=== PATIENT | female | born 1965 | race Caucasian/White ===

== ENCOUNTER 2022-09-24 14:40 | Inpatient (IN) | payer BC, SELFPAY ==
[2022-09-24] VITALS (21 sets, daily range): BP systolic 91–151; BP diastolic 65–97; PULSE 98–125; RESP 15–20; TEMP 36.2–36.3; O2SAT 96–100; BMI 33.8; BMI 34.2
--- NOTE | ~2022-09-24 | XR_ITS ---
EXAMINATION: XR chest PICC line INDICATION: PICC insertion TECHNIQUE: Portable AP chest at 1305 hours COMPARISON: 09/29/2022 FINDINGS: A right upper extremity PICC ends with its tip in the midsuperior vena cava. The lungs are free of acute opacities. No pleural effusion or pneumothorax. The cardiomediastinal silhouette is nor mal. Changes of fusion procedure are noted in the lower cervical spine. IMPRESSION: 1. Right upper extremity PICC ending with its tip in the midsuperior vena cava. Reviewed, dictated and finalized at location B.
--- NOTE | ~2022-09-24 | CT_ITS ---
EXAMINATION: CT abdomen pelvis w con DATE: 09/24/2022 17:01 INDICATION: jaundice, vomiting TECHNIQUE: Computed tomography (CT) of the abdomen and pelvis was performed with 100 mL Omnipaque-350 intravenous contrast. Automated exposure control and iterative reconstruction technique were employe d. The dose-length product was 1445.81 mGy-cm. COMPARISON: None. FINDINGS: Lower thorax: Minimal dependent atelectasis. Liver: Enlarged. Geographic fatty infiltration. Left lobe cyst/hemangioma at the free edge of the lef t lobe near the gallbladder. Biliary/Gallbladder: Dilated gallbladder. No gallstones detected. Trace pericholecystic fluid No bile duct dilation. Pancreas: No mass or duct dilation. Spleen: Normal. Adrenals:No mass. Kidneys: No mass, stone, or hydronephrosis. GI tract: Small hiatal hernia. Gastric bypass surgery. No small or large bowel dilation. Appendix not visualized. Mesentery/Peritoneum: Small volume ascites. No mass or free air. Retroperitoneum: No mass. Mild atherosclerotic abdominal aortic and/or arterial calcifications. Pelvis: Urinary bladder decompressed. Uterus surgically absent. Small volume free pelvic fluid. Soft Tissues: Soft tissues and body wall unremarkable. Bones: No acute osseous finding. IMPRESSION: Hepatomegaly with geographic steatosis. Gallbladder hydrops. Small volume ascites. Reviewed, dictated and finalized at location K. IMPRESSION: Hepatomegaly with geographic steatosis. Gallbladder hydrops. Small volume ascit es.
--- NOTE | ~2022-09-24 | CT_ITS ---
EXAMINATION: CT brain wo con DATE: 09/24/2022 17:01 INDICATION: ams . TECHNIQUE: Computed tomography (CT) of the head was performed without intravenous contrast. The mA wa s adjusted according to patient size. Iterative reconstruction technique was employed. The dose-lengt h product was 605.33 mGy-cm. COMPARISON: None. FINDINGS: No acute intracranial hemorrhage or extra-axial fluid collection. No hydrocephalus, mass, or herniation. No acute ischemic infarct. Unremarkable dural venous sinus attenuation. No acute osseous abnormality. The aerated spaces are clear. IMPRESSION: No acute intracranial process. Reviewed, dictated and finalized at location K.
--- NOTE | ~2022-09-24 | XR_ITS ---
EXAMINATION: XR chest 1V portable INDICATION: Hyponatremia TECHNIQUE: Portable AP chest at 1333 hours COMPARISON: None available FINDINGS: The lungs are free of acute opacities. No pleural effusion or pneumothorax. The cardiomedia stinal silhouette is normal. There are partially imaged changes of fusion procedure in the lower cerv ical spine. IMPRESSION: 1. No acute cardiopulmonary abnormality. Reviewed, dictated and finalized at location L.
--- NOTE | 2022-09-24 15:20 | ECG_ITS ---
Measurements Intervals [place] Rate: 95 P: 26 [place]: 140 QRS: 20 QRSD: 98 T: 10 QT: 342 QTc: 431 Interpretive Statements SINUS RHYTHM MINIMAL Q WAVES- INFERIOR LEADS CONSIDER ANTERIOR INFARCT, AGE INDETERMINATE BORDERLINE T WAVE ABNORMALITY- ANTEROLAT/INF LEADS BASELINE ARTIFACT- I, III, AVL ABNORMAL ECG NO PREVIOUS ECG AVAILABLE FOR COMPARISON Electronically Signed On 09-24-2022 21:36:27 CDT by Cristopher Salcido D.O.
--- NOTE | 2022-09-24 15:21 | ED.AMS ---
HPI - Altered Mental Status General Chief Complaint: Altered Mental Status Stated Complaint: jaundice, AMS Time Seen by Provider: 09/24/22 15:01 History of Present Illness HPI narrative: Patient is a 57-year-old female presenting with altered mental status. Son is at bedside and is assisting with history. States that the patient had a URI several weeks ago and at that time decided to stop drinking. States that she was drinking 2-4 bottles of wine per day before this time. States that she has not been drinking since then but unfortunately her skin has become progressively yellow her. She spoke with her PCP about a week ago who discussed dietary changes to help. She continues to have worsening jaundice and has now been confused since last night around 9 PM. Patient's son states that she has been having difficulty finding words and was having problems using the remote last night. No focal weakness or numbness. No facial droop. She denies fevers or chills, headache, chest pain, shortness of breath, abdominal pain, diarrhea, dysuria, leg swelling. She does report an episode of melena today. Related Data Home Medications Medication Instructions Recorded Confirmed calcium carbonate 600 mg calcium 1,200 mg PO DAILY 09/26/22 09/26/22 (1,500 mg) tablet vits no.126-ferrous fum 2 tablet PO DAILY 09/26/22 09/26/22 28 mg iron-folic acid 800 mcg tablet (Classic ) Allergies Allergy/AdvReac Type Severity Reaction Status Date / Time No Known Allergies Allergy Verified 09/24/22 15:10 Review of Systems Review of Systems: All systems reviewed & are unremarkable except as noted in HPI and below PMFSH Past Medical History Medical History (Updated 09/29/22 @ 14:26 by Yumiko Cortés MD) Alcoholic hepatitis Alcoholism Dark stools Essential hypertension No longer medications since bypass procedure Hepatic steatosis Hyperlipidemia No longer medications since bypass procedure Hypothyroidism No longer on medication since bypass procedure Kidney stones Migraine Obesity With weight as high as 360 lb prior to bypass procedure Obstructive sleep apnea Reportedly resolved after bypass procedure Slow transit constipation Surgical History Surgical History (Updated 09/25/22 @ 00:06 by Radha Michelle DO) History of appendectomy History of breast biopsy Multiple with benign pathology History of gastric bypass (~2007) History of tonsillectomy and adenoidectomy History of total hysterectomy with bilateral salpingo-oophorectomy (BSO) Initial hysterectomy due to uterine fibroids with patient later having bilateral oophorectomy but had to have a 3rd surgery due to ?part of an ovary being left over? 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 She has moved to the area in February of 2022 following a divorce and lives with her son and his family. She has 3 sons. She is a lifelong nonsmoker. She denies illicit substance use. She drinks between 3-4 bottles of wine a day but quit drinking September 07 2022. Code status: Full code Surrogate decision maker: Rui Michelle (youngest son) Smoking status: Never smoker Second hand tobacco smoke exposure: Yes (Mother smoked) Alcohol intake: former Substance use: never Last use: Quit drinking 3 weeks ago, drank 2 bottles of wine a day Lack of Transportation: No Lack of Food: Never True Current Housing: I Have Housing Concerned About Future Housing: No Difficulty Paying Gas/Electric Bills: No Difficulty Paying for Meds: No Currently Unemployed: No Education: Associate Degree Difficulty w/ Childcare or Family Care: No Spirit
[2022-09-24] MEDS: LACTATED RINGERS 1,000 ML 999 ML IV CONT ×2 (15:46→19:40)
[2022-09-24 15:48] LABS: Hematocrit 33.7 % (37.0-47.0); Hemoglobin 11.8 g/dL (12.0-15.0); Mean Corpuscular Hemoglobin 36.8 pg (26-34); Mean Platelet Volume 10.5 fl (7.4-10.4); Platelet Count Result 212 k/mm3 (150-375); Red Blood Count 3.21 M/mm3 (4.2-5.4); Red Cell Distribution Width 15.3 % (11.5-14.5); White Blood Count 12.7 K/mm3 (4.5-10.0)
[2022-09-24 15:59] LABS: INR 2.4; Prothrombin Time 25.4 Seconds (11.1-14.7)
[2022-09-24 16:07] LABS: Ethanol < 10 mg/dL (<10)
[2022-09-24 16:08] LABS: Alanine Aminotransferase 151 U/L (6-35); Albumin Level 3.4 g/dL (3.5-5.1); Alkaline Phosphatase 199 U/L (38-126); Anion Gap 8 mmol/L (8-16); Aspartate Amino Transferase 340 U/L (14-36); Bilirubin,Total 25.4 mg/dL (0.2-1.3); Blood Urea Nitrogen 33 mg/dL (7-17); Calcium 8.3 mg/dL (8.4-10.2); Carbon Dioxide 28 mmol/L (22-30); Chloride 89 mmol/L (98-107); Estimated CRCL calculation 49 ml/min; Estimated Glomerular Filt Rate > 60; Glucose 144 mg/dL (65-110); Lipase 130 U/L (23-300); Magnesium 2.8 mg/dL (1.6-2.3); Potassium 3.6 mmol/L (3.4-5.0); Sodium 125 mmol/L (137-145)
[2022-09-24 16:15] LABS: Lactic Acid Reflex 2.3 mmol/L (0.7-2.0)
[2022-09-24 16:18] LABS: Ammonia 47 umol/L (9-30)
[2022-09-24 16:18] LABS: Troponin I < 0.012 ng/mL (0.000-0.034)
[2022-09-24 16:19] LABS: Band Neutrophils Percent 4 % (0-6); Eosinophils Absolute Manual 0.12 K/mm3 (0.02-0.5); Eosinophils Percent Manual 1 % (0-4); Lymphocytes Absolute Manual 0.38 K/mm3 (1.1-4.5); Monocytes Absolute Manual 0.38 K/mm3 (0.1-0.90); Monocytes Percent Manual 3 % (3-9); Neutrophils Absolute Manual 11.81 K/mm3 (1.7-7.2); Neutrophils Percent Manual 89 % (46-73); Total Cells Counted 100
[2022-09-24 16:20] LABS: Platelet Estimate Adequate (Adequate); Schistocytes None Seen (NORMAL)
[2022-09-24 16:21] LABS: Anisocytosis 2+ (NORMAL)
[2022-09-24 16:38] LABS: Influenza A QL RT-PCR Negative (Negative); Influenza B QL RT-PCR Negative (Negative); SARS-CoV-2 RNA PCR Negative
[2022-09-24 16:44] LABS: Appearance Urine Clear (Clear); Bilirubin Urine 3+ (Negative); Blood Urine Trace-lysed (Negative); Color Urine Orange (Yellow); Glucose Urine UA Trace mg/dL (Negative); Ketones Urine Trace mg/dL (Negative); Leukocyte Esterase Ur Negative LEU/UL (Negative); Nitrate Urine Negative (Negative); Protein Urine 1+ mg/dL (Negative)
[2022-09-24 16:56] LABS: Add Urine Microscopic? YES; RBC Urine 0-2 /hpf (0-2)
[2022-09-24 16:57] LABS: Bacteria Urine None seen /hpf; Squamous Epithelial Cell Urine Rare /hpf (Few); WBC Urine None seen /hpf (0-3)
[2022-09-24 19:00] LABS: Reflex Lactic Acid Yes or No Add Lactic
--- NOTE | 2022-09-24 19:21 | PC.NURSE ---
Report received from RICARDO Ortega. Assumed care of patient at this time.
[2022-09-24 19:52] LABS: Troponin I < 0.012 ng/mL (0.000-0.034)
[2022-09-24 19:54] LABS: Lactic Acid 2.4 mmol/L (0.7-2.0)
--- NOTE | 2022-09-24 20:13 | PM.IMHP ---
H&P: HPI History of Present Illness Date/Time: 09/24/22 20:13 Chief Complaint: Yellow skin, confused Narrative: 57-year-old female with a past medical history of hepatic steatosis, morbid obesity status post gastric bypass procedure 2007, pre diabetes, essential hypertension, hypothyroidism, alcoholism and chronic constipation with hemorrhoids who presented to the ER from home via private vehicle due to jaundice and confusion. Source of information comes from the patient and her son who was at bedside. The patient's case was discussed with patient's son with her permission. The patient evidently recently moved here in February after she got a divorce. She has still working intact support. She was in her usual state health until approximately 3 weeks ago when her and several other members of her household became ill with nausea vomiting and diarrhea. After she recovered from those symptoms she accidentally drink some orange juice which thing gave her an episode of dumping a. When she became so ill with the dumping episode she decided that she would had been sick long enough and did not need to drink her usual 3-4 bottles of wine a day anymore. She she thinks that part of her ill symptoms during that time was likely due to alcohol withdrawal as she has not drink since that time. After her initial symptoms resolved her son noted that the patient's skin started to turn faintly yellow. Her skin has been mildly yellow for a couple of weeks but has gotten markedly more so in the last 5 days. Her son brought her in today when she became acutely confused. He reports that his mother's responses are slower than usual and she is having difficulty with thought process. The patient herself is frustrated because she is having difficulty expressing answers to questions. She is only oriented to who the president is in the fact that she is at [facility]. She thought the month was October and that the year was 2021. Despite her difficulties with orientation questions she was relatively good historian regarding her past medical history. She reported that she usually tends to be constipated and LEs she is having an amp episode of dumping syndrome when she accidentally ingests sugar. She had not had a bowel movement in about a week and then today had a hard bowel movement. After she had a hard bowel movement she did pass some dark blood with her stool. Her son felt that the amount of blood in the stool was moderate. The patient states that this is not unusual for her when she has been constipated and she does have a history of hemorrhoids. She denies any abdominal pain. She has not had any recurrent nausea vomiting after her initial symptoms a few weeks ago. She denies any heartburn. She has not had any chest pain. She has been coughing for about 3 days and reports that it is been a nonproductive cough. She has been mildly short of breath for 1 day. She has not noticed her abdomen being more distended. She denies any chest pain. She has not had any difficulty with urination. She reports that her stools were brown. He was afebrile on presentation to the ER. She denies any headache or vision changes. Her son is also noticed that the patient has been having difficulty ambulating for the last day or 2. Her gait is slow. On evaluation the patient had a slightly broad-based gait. When she closes her eyes the patient loses her balance and falls backwards. She did have a fall last week while she was in the laundry room but denies hitting her head. It sounds as if she was having trouble getting up off the floor due to limited space and generalized weakness. Her son was able to help her up off the floor. She denies any difficulty with urination. She denies a known history of cirrhosis. She reports that she has been drinking heavily for 6 years. She does not have a primary care physician in the area and has been receiving her medical care via tele medicine. She plans
[2022-09-24] MEDS: LACTULOSE 20 GM/30 ML UDC PO (20:14)
[2022-09-24] MEDS: predniSONE 20 MG TABLET 40 MG PO (20:14)
[2022-09-24] MEDS: BENZONATATE 100 MG CAPSULE PO (20:25)
[2022-09-24 20:49] LABS: Sodium Urine Random < 5 meq/L
[2022-09-24 22:24] LABS: Sodium 128 mmol/L (137-145)
--- NOTE | 2022-09-24 22:34 | PC.NURSE ---
This patient, Chel Gil, was admitted to IMU Room 231-01 on 09/24/22 at 2115. Patient/family oriented to hospital policies and general routines including ID bracelet, bed and alarms, visiting hours, pain management, procedures, bathroom and other care routines, personal items, smoking policy, room service/diet, and visiting hours. Information on how to activate the Rapid Response Team has been discussed. Patient/Family are encouraged to report perceived risks to care and to ask questions if they do not understand what they are told or what they should do.
[2022-09-24 22:38] LABS: Troponin I < 0.012 ng/mL (0.000-0.034)
[2022-09-24] MEDS: THIAMINE 500 MG/NS 100 ML 500 MG/100 ML BAG 200 MG IVPB (23:00)
[2022-09-25] VITALS (13 sets, daily range): BP systolic 91–131; BP diastolic 60–77; PULSE 97–118; RESP 16–20; TEMP 36.3–36.7; O2SAT 97–100
--- NOTE | 2022-09-25 04:46 | PC.NURSE ---
Spoke with the transfer center. Still no beds available at [facility].
[2022-09-25 05:01] LABS: Basophils Percent Auto 0.3 % (0.2-1.2); Hematocrit 30.5 % (37.0-47.0); Hemoglobin 10.5 g/dL (12.0-15.0); Immature Granulocyte Absolute 0.08 K/mm3 (0.00-0.031); Immature Granulocyte Percent A 0.7 % (0-0.5); Lymphocytes Absolute Auto 0.55 K/mm3 (0.9-3.2); Lymphocytes Percent Auto 4.6 % (18.3-44.2); Mean Corpuscular HGB Conc 34.4 g/dl (32-36); Mean Corpuscular Volume 107.4 fl (80-100); Mean Platelet Volume 10.3 fl (7.4-10.4); Monocytes Absolute Auto 0.4 K/mm3 (0.1-0.6); Monocytes Percent Auto 3.7 % (2.6-8.5); Neutrophils Absolute Auto 10.8 K/mm3 (1.3-6.7); Neutrophils Percent Auto 90.7 % (45.5-73.1); Platelet Count Result 203 k/mm3 (150-375); Red Blood Count 2.84 M/mm3 (4.2-5.4); Red Cell Distribution Width 15.5 % (11.5-14.5); White Blood Count 11.9 K/mm3 (4.5-10.0)
[2022-09-25 05:12] LABS: INR 2.7; Prothrombin Time 27.7 Seconds (11.1-14.7)
[2022-09-25 05:13] LABS: Lactic Acid Reflex 1.2 mmol/L (0.7-2.0)
[2022-09-25 05:14] LABS: Partial Thromboplastin Time 45.9 SECONDS (22.3-36.8)
[2022-09-25 05:18] LABS: Alanine Aminotransferase 146 U/L (6-35); Albumin Level 2.8 g/dL (3.5-5.1); Alkaline Phosphatase 175 U/L (38-126); Amylase 114 U/L (30-110); Anion Gap 7 mmol/L (8-16); Aspartate Amino Transferase 296 U/L (14-36); Blood Urea Nitrogen 31 mg/dL (7-17); Calcium 7.8 mg/dL (8.4-10.2); Carbon Dioxide 26 mmol/L (22-30); Chloride 94 mmol/L (98-107); Estimated CRCL calculation 70 ml/min; Estimated Glomerular Filt Rate > 60; Glucose 133 mg/dL (65-110); Lactate Dehydrogenase 253 U/L (120-246); Potassium 3.1 mmol/L (3.4-5.0); Sodium 127 mmol/L (137-145)
[2022-09-25 06:15] LABS: Folic Acid 12.7 ng/mL (2.76->20); Vitamin B12 > 1000.0 pg/mL (239-931)
[2022-09-25] MEDS: THIAMINE 500 MG/NS 100 ML 500 MG/100 ML BAG 200 MG IVPB ×3 (06:22→22:43)
[2022-09-25 07:32] LABS: Thyroid Stimulating Hormone 0.773 uIU/mL (0.465-4.680)
[2022-09-25 08:14] LABS: Magnesium 2.9 mg/dL (1.6-2.3)
[2022-09-25] MEDS: LACTULOSE 20 GM/30 ML UDC PO ×3 (09:37→17:12)
[2022-09-25] MEDS: predniSONE 20 MG TABLET 40 MG PO (09:37)
[2022-09-25] MEDS: POTASSIUM CHLORIDE INJ 40 MEQ in SODIUM CHLORIDE 0.9% IV 500 ML 130 MEQ IVPB (09:42)
--- NOTE | 2022-09-25 14:29 | PM.IMPN ---
Progress Note: A&P Assessment and Plan (1) Alcoholic cirrhosis of liver with ascites: Code(s): K70.31 - Alcoholic cirrhosis of liver with ascites Status: Acute (2) Acute liver failure: Qualifiers: Hepatic coma status: without hepatic coma Qualified Code(s): K72.00 - Acute and subacute hepatic failure without coma Code(s): K72.00 - Acute and subacute hepatic failure without coma Status: Acute (3) Coagulopathy: Code(s): D68.9 - Coagulation defect, unspecified Status: Acute (4) Lactic acidosis: Code(s): E87.20 - Acidosis, unspecified Status: Acute (5) Hyponatremia: Code(s): E87.1 - Hypo-osmolality and hyponatremia Status: Acute (6) Hepatic encephalopathy: Code(s): K76.82 - Hepatic encephalopathy Status: Acute (7) Megaloblastic anemia: Code(s): D53.1 - Other megaloblastic anemias, not elsewhere classified Status: Acute Plan The patient in a presents with acute liver failure likely due to her chronic alcoholism. Her acute liver failure is resulted in hepatic encephalopathy and auto anticoagulation resulting and coagulopathy with INR of 2. She also has associated lactic acidosis likely due to her hepatic dysfunction. Patient received 2 L of IV fluids in the ER with her lactic acid level increasing instead of decreasing. The patient's discriminant function is elevated at 91.2 indicating poor prognosis and the patient's meld score was 33 with a predicted 52% mortality. The patient's discriminant function indicates she would benefit from steroid therapy. I ordered prednisone 40 mg p.o. daily to start tonight. The entertainment agent at [facility] was contacted by the ER provider. The patient is on a waiting list for bed. Lactulose has been initiated given the patient's hepatic encephalopathy and elevated ammonia for goal of 2-3 soft stools a day. T.i.d. lactulose has been ordered initially. Hepatology route recommends diagnostic paracentesis patient did have a small amount of ascites on CT scan. Order has been placed for IR consult and for diagnostic studies. Will also check acute hepatitis panel to rule out viral pathology but most likely cause for patient's symptoms as her alcoholism. Patient does have some hyponatremia which is likely chronic in nature. Urine random sodium and urine osmolalities as well as serum osmolality have been ordered. Will trend sodiums. Given the patient's coagulopathy will need to repeat INR in a.m.. The patient may need FFP prior to paracentesis. The patient will be made NPO at midnight for possible procedure. Patient does have megaloblastic anemia. Will check B12 and folate levels. Patient had reported some blood in her stools. GI has been consulted. The patient does have chronic alcoholism but has not reportedly drank in 3 weeks. Given her altered mental status will give patient some high-dose thiamin. Her altered mental status is likely due to hepatic encephalopathy but morning case is still a risk. Will continue thiamin supplementation and will add folic acid supplementation. If the patient truly quit drinking 3 weeks ago we should not have to worry about alcohol withdrawal. However, will monitor for symptoms regardless. The patient does have an ataxic gait and the patient was subsequently received high-dose thiamin as there is some concern for morning q.6 specially in the setting with patient who is had prior gastric bypass procedure with likely some mild chronic malnutrition with the complication of additional alcohol use. Patient has been placed on fall precautions. 100 minutes spent in patient care activities. Greater than 50% time was spent with the patient and family members at bedside explaining clinical course and prognosis. All questions were answered 09/25/2022 interval history: 57-year-old female with history of alcohol abuse now presents with liver cirrhosis and hyperlipidemia with jaundice as we
[2022-09-25] MEDS: FUROSEMIDE INJ 40 MG/4 ML VIAL IV PUSH (15:43)
[2022-09-25 16:19] LABS: Hepatitis B Surface Antigen Negative (Negative)
[2022-09-25 16:25] LABS: HAV RESULT Negative (Negative); Hepatitis B Core IgM Result Negative (Negative)
[2022-09-25 16:36] LABS: Hepatitis C Virus Antibody Negative (Negative)
--- NOTE | 2022-09-25 17:12 | WPDGICN ---
Assessment and Plan Assessment and plan (1) Alcoholic hepatitis: Code(s): K70.10 - Alcoholic hepatitis without ascites Status: Acute Assessment and Plan: severe alcoholic hepatitis medical support, nutrition and banana bag ERP attempted transfer to [facility] but no beds given high discrimant function she was started on steroids prognosis is guarded specially if continues to drink (2) Alcoholic cirrhosis of liver with ascites: Code(s): K70.31 - Alcoholic cirrhosis of liver with ascites Status: Acute Assessment and Plan: monitor ultrasound tomorrow to assess if enough fluid for analysis (3) Acute liver failure: Qualifiers: Hepatic coma status: without hepatic coma Qualified Code(s): K72.00 - Acute and subacute hepatic failure without coma Code(s): K72.00 - Acute and subacute hepatic failure without coma Status: Acute Assessment and Plan: medical treatment (4) Coagulopathy: Code(s): D68.9 - Coagulation defect, unspecified Status: Acute Assessment and Plan: from liver disease, will give vit K (5) Hepatic encephalopathy: Code(s): K76.82 - Hepatic encephalopathy Status: Acute Assessment and Plan: on treatment mental status improved (6) Megaloblastic anemia: Code(s): D53.1 - Other megaloblastic anemias, not elsewhere classified Status: Acute (7) Dark stools: Code(s): R19.5 - Other fecal abnormalities Status: Acute Assessment and Plan: monitor for signs of bleeding check h/h protonix consider egd based on clinical course GI Consult Note Consult date/time: 09/25/22 17:12 Reason for consult: severe alcoholic hepatitis HPI: Chel Gil is a 57 year old female with past medical history morbid obesity status post gastric bypass procedure 2007, pre diabetes, essential hypertension, alcoholism (for 6 years 2-3 bottles wine daily- stopped 3 weeks ago after having flu like symptoms. She was brought to ER because became jaundice, dark urine and confusion with generalized weakness. Also has been having nausea for almost 3 weeks and never got better. Her son brought her when she became acutely confused, she was slow to move around and was not even able to walk. Also noted dark stool. Blood work with severe alcoholic hepatitis, bili 23, creat 0.8, hb 10.5 with macrocytosis, inr 2.7, lactulose 47. CT scan reviewed, Hepatomegaly with geographic steatosis. Gallbladder hydrops. Small volume ascites. She was given medical treatment, banana bag, etc and today she says that feeling much better. Review of Systems Constitutional: Constitutional: Reports fatigue and Reports lethargy Eyes: Eyes: Denies blurry vision ENT: Reports Normal hearing present Cardiovascular: Cardiovascular: Denies chest pain Gastrointestinal: Gastrointestinal: Reports nausea and Reports vomiting Genitourinary: Genitourinary: Denies urinary urgency Musculoskeletal: Musculoskeletal: Denies back pain Integumentary/Breasts: Comments: jaundice Neurologic: Reports confusion Psychiatric: Psychiatric: Reports confusion [facility] Past Medical History Medical History (Updated 09/25/22 @ 17:19 by Volodymyr Ye MD) Alcoholic hepatitis Alcoholism Dark stools Essential hypertension No longer medications since bypass procedure Hepatic steatosis Hyperlipidemia No longer medications since bypass procedure Hypothyroidism No longer on medication since bypass procedure Kidney stones Migraine Obesity With weight as high as 360 lb prior to bypass procedure Obstructive sleep apnea Reportedly resolved after bypass procedure Slow transit constipation Surgical History Surgical History (Updated 09/25/22 @ 00:06 by Radha Michelle DO) History of appendectomy History of breast biopsy Multiple with benign pathology History of gastric bypass (~2007) History of tonsillectomy and adenoidectomy History of to
[2022-09-25] MEDS: SPIRONOLACTONE 12.5 MG TABLET PO (17:13)
[2022-09-26] VITALS (13 sets, daily range): BP systolic 108–127; BP diastolic 67–74; PULSE 92–114; RESP 16–20; TEMP 36.1–36.3; O2SAT 98–100
[2022-09-26 05:17] LABS: Hematocrit 29.5 % (37.0-47.0); Hemoglobin 10.3 g/dL (12.0-15.0); Mean Corpuscular HGB Conc 34.9 g/dl (32-36); Mean Corpuscular Hemoglobin 37.3 pg (26-34); Mean Corpuscular Volume 106.9 fl (80-100); Mean Platelet Volume 10.2 fl (7.4-10.4); Platelet Count Result 205 k/mm3 (150-375); Red Blood Count 2.76 M/mm3 (4.2-5.4); Red Cell Distribution Width 15.9 % (11.5-14.5); White Blood Count 13.7 K/mm3 (4.5-10.0)
[2022-09-26] MEDS: THIAMINE 500 MG/NS 100 ML 500 MG/100 ML BAG 200 MG IVPB ×3 (05:19→23:36)
[2022-09-26 05:28] LABS: INR 2.8; Prothrombin Time 28.7 Seconds (11.1-14.7)
[2022-09-26 05:40] LABS: Ammonia 22 umol/L (9-30)
[2022-09-26 05:41] LABS: Alanine Aminotransferase 163 U/L (6-35); Albumin Level 2.7 g/dL (3.5-5.1); Alkaline Phosphatase 173 U/L (38-126); Anion Gap 4 mmol/L (8-16); Aspartate Amino Transferase 338 U/L (14-36); Bilirubin,Total 22.6 mg/dL (0.2-1.3); Blood Urea Nitrogen 42 mg/dL (7-17); Calcium 7.7 mg/dL (8.4-10.2); Carbon Dioxide 27 mmol/L (22-30); Chloride 94 mmol/L (98-107); Estimated CRCL calculation 48 ml/min; Estimated Glomerular Filt Rate 47; Glucose 134 mg/dL (65-110); Magnesium 2.9 mg/dL (1.6-2.3); Potassium 3.6 mmol/L (3.4-5.0); Sodium 125 mmol/L (137-145)
[2022-09-26] MEDS: SPIRONOLACTONE 12.5 MG TABLET PO ×2 (09:15→16:26)
[2022-09-26] MEDS: predniSONE 20 MG TABLET 40 MG PO (09:15)
[2022-09-26] MEDS: FUROSEMIDE INJ 40 MG/4 ML VIAL IV PUSH (09:15)
[2022-09-26] MEDS: LACTULOSE 20 GM/30 ML UDC PO (09:15)
[2022-09-26] MEDS: PHYTONADIONE 5 MG TABLET 10 MG PO (09:16)
[2022-09-26] MEDS: PANTOPRAZOLE 40 MG TABLET PO (09:16)
--- NOTE | 2022-09-26 16:33 | WPDGIPROGNO ---
Progress Note: A&P Assessment and Plan (1) Alcoholic hepatitis: Code(s): K70.10 - Alcoholic hepatitis without ascites Status: Acute Assessment and Plan: severe etoh hepatitis with elevated discriminant function on steroids she is eating, continue nutritional support, mvi, thiamine will need referral to hepatology at tertiary center (2) Hepatic encephalopathy: Code(s): K76.82 - Hepatic encephalopathy Status: Acute Assessment and Plan: better, on lactulose (3) Coagulopathy: Code(s): D68.9 - Coagulation defect, unspecified Status: Acute Assessment and Plan: vit K (4) Megaloblastic anemia: Code(s): D53.1 - Other megaloblastic anemias, not elsewhere classified Status: Acute Assessment and Plan: hb has been stable at 10's, no signs of bleeding probably will need egd later on to assess if phg, varices, etc Subjective Date/time seen: 09/26/22 16:33 Interval history: good appetite, pleasant and feeling better, still with short term memory problem Review of Systems Review of Systems: All systems reviewed & are unremarkable except as noted in HPI and below Exam Const: Other: acutely ill, jaundice HENMT: Face/Nose/Sinus: Normal nares present Eyes: Other: icteric sclerae Neck: Neck: supple Resp: Effort & Inspection: normal respiratory effort Cardio: Rate: regular rate GI: GI Palp: Yes Soft to palpation, No Tenderness to palpation present (GI) and No Guarding due to palpation present (GI) Auscultation: normal bowel sounds Skin: Other: jaundice Neuro: Speech: normal speech Motor exam (neuro): 5/5 motor strength present throughout Extrem: General: normal to inspection Psych: Affect: Anxious affect present Objective Data Vital Signs Vital Signs: Vital Signs - 24 hr 09/25/22 18:00 09/25/22 20:00 09/25/22 20:00 Temperature 97.7 F Pulse Rate 102 H 111 H 116 H Respiratory Rate 18 Blood Pressure 124/76 Pulse Oximetry 100 Oxygen Delivery 09/25/22 20:00 09/25/22 21:43 09/25/22 23:16 Temperature 97.3 F L Pulse Rate 116 H 100 108 H Respiratory Rate 18 16 Blood Pressure 111/62 Pulse Oximetry 100 98 Oxygen Delivery Room Air 09/26/22 00:00 09/26/22 00:00 09/26/22 02:00 Temperature Pulse Rate 100 100 96 Respiratory Rate 16 Blood Pressure Pulse Oximetry 98 Oxygen Delivery Room Air 09/26/22 04:00 09/26/22 04:00 09/26/22 04:00 Temperature 97.0 F L Pulse Rate 93 93 92 Respiratory Rate 16 16 Blood Pressure 120/74 Pulse Oximetry 98 98 Oxygen Delivery Room Air 09/26/22 05:49 09/26/22 07:34 09/26/22 08:00 Temperature 97.2 F L Pulse Rate 100 101 H Respiratory Rate 18 Blood Pressure 127/74 Pulse Oximetry 100 Oxygen Delivery Room Air 09/26/22 08:00 09/26/22 10:00 09/26/22 12:00 Temperature Pulse Rate 103 H 114 H 109 H Respiratory Rate Blood Pressure Pulse Oximetry Oxygen Delivery 09/26/22 12:00 09/26/22 12:00 09/26/22 14:00 Temperature 97.3 F L Pulse Rate 110 H 108 H Respiratory Rate 18 Blood Pressure 115/72 Pulse Oximetry 100 Oxygen Delivery Room Air 09/26/22 15:42 09/26/22 16:00 Temperature 97.1 F L Pulse Rate 109 H Respiratory Rate 20 Blood Pressure 112/67 Pulse Oximetry 99 Oxygen Delivery Room Air Intake/Output Intake/Output: Intake & Output 09/23/22 09/24/22 09/25/22 09/26/22 23:59 23:59 23:59 23:59 Intake Total 2100 1280 1030 Output Total 500 700 300 Balance 1600 580 730 Meds/Results Medications: Active Medications Generic Name Dose Route Start Last Admin Trade Name Tenzinq PRN Reason Stop Dose Admin Calcium Carbonate 1,000 mg 09/27/22 09:00 Calcium Carbonate (Oscal) 500 Mg Tablet PO DAILY DANYEL Furosemide 40 mg 09/25/22 14:45 09/26/22 09:15 Furosemide Inj 40 Mg/4 Ml Vial IV PUSH 40 mg DAILY DANYEL Administration Hydroxyzine HCl 25 mg 09/26/22 0
[2022-09-26] MEDS: hydrOXYzine HCL 25 MG TABLET PO (16:36)
--- NOTE | 2022-09-26 16:58 | PM.IMPN ---
Progress Note: A&P Assessment and Plan (1) Alcoholic cirrhosis of liver with ascites: Code(s): K70.31 - Alcoholic cirrhosis of liver with ascites Status: Acute (2) Acute liver failure: Qualifiers: Hepatic coma status: without hepatic coma Qualified Code(s): K72.00 - Acute and subacute hepatic failure without coma Code(s): K72.00 - Acute and subacute hepatic failure without coma Status: Acute (3) Coagulopathy: Code(s): D68.9 - Coagulation defect, unspecified Status: Acute (4) Lactic acidosis: Code(s): E87.20 - Acidosis, unspecified Status: Acute (5) Hyponatremia: Code(s): E87.1 - Hypo-osmolality and hyponatremia Status: Acute (6) Hepatic encephalopathy: Code(s): K76.82 - Hepatic encephalopathy Status: Acute (7) Megaloblastic anemia: Code(s): D53.1 - Other megaloblastic anemias, not elsewhere classified Status: Acute Plan The patient in a presents with acute liver failure likely due to her chronic alcoholism. Her acute liver failure is resulted in hepatic encephalopathy and auto anticoagulation resulting and coagulopathy with INR of 2. She also has associated lactic acidosis likely due to her hepatic dysfunction. Patient received 2 L of IV fluids in the ER with her lactic acid level increasing instead of decreasing. The patient's discriminant function is elevated at 91.2 indicating poor prognosis and the patient's meld score was 33 with a predicted 52% mortality. The patient's discriminant function indicates she would benefit from steroid therapy. I ordered prednisone 40 mg p.o. daily to start tonight. The retirement plan specialist at [facility] was contacted by the ER provider. The patient is on a waiting list for bed. Lactulose has been initiated given the patient's hepatic encephalopathy and elevated ammonia for goal of 2-3 soft stools a day. T.i.d. lactulose has been ordered initially. Hepatology route recommends diagnostic paracentesis patient did have a small amount of ascites on CT scan. Order has been placed for IR consult and for diagnostic studies. Will also check acute hepatitis panel to rule out viral pathology but most likely cause for patient's symptoms as her alcoholism. Patient does have some hyponatremia which is likely chronic in nature. Urine random sodium and urine osmolalities as well as serum osmolality have been ordered. Will trend sodiums. Given the patient's coagulopathy will need to repeat INR in a.m.. The patient may need FFP prior to paracentesis. The patient will be made NPO at midnight for possible procedure. Patient does have megaloblastic anemia. Will check B12 and folate levels. Patient had reported some blood in her stools. GI has been consulted. The patient does have chronic alcoholism but has not reportedly drank in 3 weeks. Given her altered mental status will give patient some high-dose thiamin. Her altered mental status is likely due to hepatic encephalopathy but morning case is still a risk. Will continue thiamin supplementation and will add folic acid supplementation. If the patient truly quit drinking 3 weeks ago we should not have to worry about alcohol withdrawal. However, will monitor for symptoms regardless. The patient does have an ataxic gait and the patient was subsequently received high-dose thiamin as there is some concern for morning q.6 specially in the setting with patient who is had prior gastric bypass procedure with likely some mild chronic malnutrition with the complication of additional alcohol use. Patient has been placed on fall precautions. 09/26/2022 interval history: 57-year-old female with history of alcohol abuse now presents with liver cirrhosis and hyperlipidemia with jaundice as well as ascites, patient remains clinically stable does complain of abdominal pain but does not appear to be any short of breath, will gently diurese the patient with Lasix and spironolactone, patient
--- NOTE | 2022-09-26 20:43 | PC.NURSE ---
Patient transferred from IMU room 231; report received from RICARDO Brock.
--- NOTE | 2022-09-26 21:20 | PC.NURSE ---
Report given to Aby SILVA. Patient to room 301
[2022-09-27] MEDS: BENZONATATE 100 MG CAPSULE PO ×2 (00:11→18:35)
[2022-09-27 05:33] VITALS: BP 102/67; PULSE 91; RESP 16; TEMP 36.2; O2SAT 99
[2022-09-27 06:01] LABS: Hematocrit 33.3 % (37.0-47.0); Hemoglobin 11.5 g/dL (12.0-15.0); Mean Corpuscular HGB Conc 34.5 g/dl (32-36); Mean Corpuscular Hemoglobin 36.5 pg (26-34); Mean Corpuscular Volume 105.7 fl (80-100); Mean Platelet Volume 10.3 fl (7.4-10.4); Platelet Count Result 197 k/mm3 (150-375); Red Blood Count 3.15 M/mm3 (4.2-5.4); Red Cell Distribution Width 15.6 % (11.5-14.5); White Blood Count 12.5 K/mm3 (4.5-10.0)
[2022-09-27] MEDS: THIAMINE 500 MG/NS 100 ML 500 MG/100 ML BAG 200 MG IVPB ×3 (06:06→21:13)
[2022-09-27 06:12] LABS: INR 2.8; Prothrombin Time 28.6 Seconds (11.1-14.7)
[2022-09-27] MEDS: hydrOXYzine HCL 25 MG TABLET PO ×3 (06:12→21:13)
[2022-09-27 06:14] LABS: Ammonia 64 umol/L (9-30)
[2022-09-27 06:16] LABS: Alanine Aminotransferase 204 U/L (6-35); Albumin Level 2.9 g/dL (3.5-5.1); Alkaline Phosphatase 214 U/L (38-126); Anion Gap 4 mmol/L (8-16); Aspartate Amino Transferase 432 U/L (14-36); Bilirubin,Total 23.3 mg/dL (0.2-1.3); Blood Urea Nitrogen 41 mg/dL (7-17); Calcium 7.6 mg/dL (8.4-10.2); Carbon Dioxide 26 mmol/L (22-30); Chloride 93 mmol/L (98-107); Estimated CRCL calculation 52 ml/min; Estimated Glomerular Filt Rate 52; Glucose 130 mg/dL (65-110); Potassium 3.2 mmol/L (3.4-5.0); Sodium 123 mmol/L (137-145)
[2022-09-27] MEDS: LACTULOSE 20 GM/30 ML UDC PO (08:25)
[2022-09-27] MEDS: MULTIVIT/MIN/PREN/FOL AC/IRON TABLET 2 TAB PO (08:25)
[2022-09-27] MEDS: FUROSEMIDE INJ 40 MG/4 ML VIAL IV PUSH (08:26)
[2022-09-27] MEDS: PHYTONADIONE 5 MG TABLET 10 MG PO (08:26)
[2022-09-27] MEDS: PANTOPRAZOLE 40 MG TABLET PO (08:26)
[2022-09-27] MEDS: SPIRONOLACTONE 12.5 MG TABLET PO ×2 (08:26→18:00)
[2022-09-27] MEDS: POTASSIUM CHLORIDE 20 MEQ TABLET 40 MEQ PO (08:26)
[2022-09-27] MEDS: predniSONE 20 MG TABLET 40 MG PO (08:26)
[2022-09-27] MEDS: CALCIUM CARBONATE (OSCAL) 500 MG TABLET 1000 MG PO (08:26)
--- NOTE | 2022-09-27 10:52 | PCOTNOTE ---
Attempted to see pt. for occupational therapy evaluation. Pt. is independent in room and states that she does not require OT services at this time. Hospitalist, Dr. Brothers called, voicemail full. Nursing updated. Plans to cancel order when approved.
--- NOTE | 2022-09-27 13:20 | PM.IMPN ---
Progress Note: A&P Assessment and Plan (1) Alcoholic cirrhosis of liver with ascites: Code(s): K70.31 - Alcoholic cirrhosis of liver with ascites Status: Acute (2) Acute liver failure: Qualifiers: Hepatic coma status: without hepatic coma Qualified Code(s): K72.00 - Acute and subacute hepatic failure without coma Code(s): K72.00 - Acute and subacute hepatic failure without coma Status: Acute (3) Coagulopathy: Code(s): D68.9 - Coagulation defect, unspecified Status: Acute (4) Lactic acidosis: Code(s): E87.20 - Acidosis, unspecified Status: Acute (5) Hyponatremia: Code(s): E87.1 - Hypo-osmolality and hyponatremia Status: Acute (6) Hepatic encephalopathy: Code(s): K76.82 - Hepatic encephalopathy Status: Acute (7) Megaloblastic anemia: Code(s): D53.1 - Other megaloblastic anemias, not elsewhere classified Status: Acute Plan The patient in a presents with acute liver failure likely due to her chronic alcoholism. Her acute liver failure is resulted in hepatic encephalopathy and auto anticoagulation resulting and coagulopathy with INR of 2. She also has associated lactic acidosis likely due to her hepatic dysfunction. Patient received 2 L of IV fluids in the ER with her lactic acid level increasing instead of decreasing. The patient's discriminant function is elevated at 91.2 indicating poor prognosis and the patient's meld score was 33 with a predicted 52% mortality. The patient's discriminant function indicates she would benefit from steroid therapy. I ordered prednisone 40 mg p.o. daily to start tonight. The commercial development manager at [facility] was contacted by the ER provider. The patient is on a waiting list for bed. Lactulose has been initiated given the patient's hepatic encephalopathy and elevated ammonia for goal of 2-3 soft stools a day. T.i.d. lactulose has been ordered initially. Hepatology route recommends diagnostic paracentesis patient did have a small amount of ascites on CT scan. Order has been placed for IR consult and for diagnostic studies. Will also check acute hepatitis panel to rule out viral pathology but most likely cause for patient's symptoms as her alcoholism. Patient does have some hyponatremia which is likely chronic in nature. Urine random sodium and urine osmolalities as well as serum osmolality have been ordered. Will trend sodiums. Given the patient's coagulopathy will need to repeat INR in a.m.. The patient may need FFP prior to paracentesis. The patient will be made NPO at midnight for possible procedure. Patient does have megaloblastic anemia. Will check B12 and folate levels. Patient had reported some blood in her stools. GI has been consulted. The patient does have chronic alcoholism but has not reportedly drank in 3 weeks. Given her altered mental status will give patient some high-dose thiamin. Her altered mental status is likely due to hepatic encephalopathy but morning case is still a risk. Will continue thiamin supplementation and will add folic acid supplementation. If the patient truly quit drinking 3 weeks ago we should not have to worry about alcohol withdrawal. However, will monitor for symptoms regardless. The patient does have an ataxic gait and the patient was subsequently received high-dose thiamin as there is some concern for morning q.6 specially in the setting with patient who is had prior gastric bypass procedure with likely some mild chronic malnutrition with the complication of additional alcohol use. Patient has been placed on fall precautions. 09/27/2022 interval history: 57-year-old female with history of alcohol abuse now presents with liver cirrhosis and hyperbilirubinemia,with jaundice as well as ascites, patient remains clinically stable does complain of abdominal pain but does not appear to be any short of breath, will gently diurese the patient with Lasix and spironolactone, christiano
[2022-09-27 14:00] VITALS: BP 100/65; PULSE 114; RESP 16; TEMP 36.8; O2SAT 99
--- NOTE | 2022-09-27 14:42 | WPDGIPROGNO ---
Progress Note: A&P Assessment and Plan (1) Alcoholic hepatitis: Code(s): K70.10 - Alcoholic hepatitis without ascites Status: Acute Assessment and Plan: severe etoh hepatitis with elevated discriminant function, she has been started on steroids she is eating, continue nutritional support, mvi, thiamine will need referral to hepatology at tertiary center (2) Hepatic encephalopathy: Code(s): K76.82 - Hepatic encephalopathy Status: Acute Assessment and Plan: better, on lactulose (3) Coagulopathy: Code(s): D68.9 - Coagulation defect, unspecified Status: Acute Assessment and Plan: vit Km inr still high (4) Megaloblastic anemia: Code(s): D53.1 - Other megaloblastic anemias, not elsewhere classified Status: Acute Assessment and Plan: hb has been stable at 10's, no signs of bleeding probably will need egd later on to assess if phg, varices, etc Subjective Date/time seen: 09/27/22 14:42 Interval history: no changes, walking more today, good spirits Review of Systems Review of Systems: All systems reviewed & are unremarkable except as noted in HPI and below Exam Const: General: comfortable and no acute distress Other: jaundice HENMT: Face/Nose/Sinus: Normal nares present Eyes: Other: icteric sclerae Neck: Neck: supple Resp: Effort & Inspection: normal respiratory effort Cardio: Rate: regular rate GI: GI Palp: Yes Soft to palpation, No Tenderness to palpation present (GI) and No Guarding due to palpation present (GI) Auscultation: normal bowel sounds Skin: Other: jaundice Neuro: Speech: normal speech Motor exam (neuro): 5/5 motor strength present throughout Extrem: General: normal to inspection Psych: Affect: Anxious affect present Objective Data Vital Signs Vital Signs: Vital Signs - 24 hr 09/26/22 15:42 09/26/22 16:00 09/26/22 16:00 Temperature 97.1 F L Pulse Rate 109 H 109 H Respiratory Rate 20 Blood Pressure 112/67 Pulse Oximetry 99 Oxygen Delivery Room Air 09/26/22 18:00 09/26/22 20:00 09/26/22 21:33 Temperature 97.0 F L Pulse Rate 105 H 110 H Respiratory Rate 16 Blood Pressure 108/71 Pulse Oximetry 100 Oxygen Delivery Room Air 09/27/22 05:33 09/27/22 08:38 Temperature 97.2 F L Pulse Rate 91 Respiratory Rate 16 Blood Pressure 102/67 Pulse Oximetry 99 Oxygen Delivery Room Air Intake/Output Intake/Output: Intake & Output 09/24/22 09/25/22 09/26/22 09/27/22 23:59 23:59 23:59 23:59 Intake Total 2100 1280 2570 870 Output Total 500 700 900 Balance 6650 935 4332 870 Meds/Results Medications: Active Medications Generic Name Dose Route Start Last Admin Trade Name Freq PRN Reason Stop Dose Admin Benzonatate 100 mg 09/26/22 23:44 09/27/22 00:11 Benzonatate 100 Mg Capsule PO 100 mg TID PRN Administration Cough Calcium Carbonate 1,000 mg 09/27/22 09:00 09/27/22 08:26 Calcium Carbonate (Oscal) 500 Mg Tablet PO 1,000 mg DAILY DANYEL Administration Furosemide 40 mg 09/25/22 14:45 09/27/22 08:26 Furosemide Inj 40 Mg/4 Ml Vial IV PUSH 40 mg DAILY DANYEL Administration Hydroxyzine HCl 25 mg 09/26/22 09:39 09/27/22 12:11 Hydroxyzine Hcl 25 Mg Tablet PO 25 mg Q6H PRN Administration Itching Thiamine HCl 500 mg in 100 mls @ 200 mls/hr 09/25/22 06:15 09/27/22 14:09 IVPB 200 mls/hr Q8HR DANYEL Administration Lactulose 20 gm 09/26/22 09:00 09/27/22 08:25 Lactulose 20 Gm/30 Ml Udc PO 20 gm QAM DANYEL Administration Pantoprazole Sodium 40 mg 09/26/22 09:00 09/27/22 08:26 Pantoprazole 40 Mg Tablet PO 40 mg QAM DANYEL Administration Phytonadione 10 mg 09/26/22 09:00 09/27/22 08:26 Phytonadione 5 Mg Tablet PO 09/29/22 08:59 10 mg DAILY DANYEL Administration Prednisone 40 mg 09/25/22 08:00 09/27/22 08:26 Prednisone 20 Mg Tablet PO 40 mg DAILY@0800 DANYEL Administration
[2022-09-27 20:18] LABS: Osmolality, Urine 381 mOsm/kg (50-1200)
[2022-09-27 20:58] VITALS: BP 94/49; PULSE 88; RESP 16; TEMP 36.3; O2SAT 99
[2022-09-28 05:42] VITALS: BP 104/59; PULSE 90; RESP 16; TEMP 36.6; O2SAT 100
[2022-09-28 06:13] LABS: Hematocrit 31.2 % (37.0-47.0); Mean Corpuscular HGB Conc 35.3 g/dl (32-36); Mean Corpuscular Hemoglobin 35.9 pg (26-34); Mean Platelet Volume 10.3 fl (7.4-10.4); Platelet Count Result 175 k/mm3 (150-375); Red Blood Count 3.06 M/mm3 (4.2-5.4); Red Cell Distribution Width 15.5 % (11.5-14.5); White Blood Count 11.1 K/mm3 (4.5-10.0)
[2022-09-28 06:21] LABS: Ammonia 58 umol/L (9-30)
[2022-09-28] MEDS: THIAMINE 500 MG/NS 100 ML 500 MG/100 ML BAG 200 MG IVPB ×3 (06:26→21:30)
[2022-09-28 07:24] LABS: Alanine Aminotransferase 219 U/L (6-35); Albumin Level 2.7 g/dL (3.5-5.1); Alkaline Phosphatase 209 U/L (38-126); Anion Gap 8 mmol/L (8-16); Aspartate Amino Transferase 382 U/L (14-36); Bilirubin,Total 22.5 mg/dL (0.2-1.3); Blood Urea Nitrogen 44 mg/dL (7-17); Calcium 7.3 mg/dL (8.4-10.2); Carbon Dioxide 22 mmol/L (22-30); Chloride 93 mmol/L (98-107); Estimated CRCL calculation 57 ml/min; Estimated Glomerular Filt Rate 58; Glucose 134 mg/dL (65-110); Magnesium 3.3 mg/dL (1.6-2.3); Potassium 3.7 mmol/L (3.4-5.0); Sodium 123 mmol/L (137-145)
[2022-09-28] MEDS: LACTULOSE 20 GM/30 ML UDC PO (08:17)
[2022-09-28] MEDS: CALCIUM CARBONATE (OSCAL) 500 MG TABLET 1000 MG PO (08:18)
[2022-09-28] MEDS: MULTIVIT/MIN/PREN/FOL AC/IRON TABLET 2 TAB PO (08:19)
[2022-09-28] MEDS: predniSONE 20 MG TABLET 40 MG PO (08:19)
[2022-09-28] MEDS: PHYTONADIONE 5 MG TABLET 10 MG PO (08:19)
[2022-09-28] MEDS: SPIRONOLACTONE 12.5 MG TABLET PO ×2 (08:20→16:52)
[2022-09-28] MEDS: PANTOPRAZOLE 40 MG TABLET PO (08:20)
[2022-09-28] MEDS: FUROSEMIDE INJ 40 MG/4 ML VIAL IV PUSH (08:20)
[2022-09-28 09:15] VITALS: O2SAT 96
--- NOTE | 2022-09-28 12:12 | PM.IMPN ---
Progress Note: A&P Assessment and Plan (1) Alcoholic cirrhosis of liver with ascites: Code(s): K70.31 - Alcoholic cirrhosis of liver with ascites Status: Acute Assessment and Plan: Continue prednisone. Appreciate GI input (2) Acute liver failure: Qualifiers: Hepatic coma status: without hepatic coma Qualified Code(s): K72.00 - Acute and subacute hepatic failure without coma Code(s): K72.00 - Acute and subacute hepatic failure without coma Status: Acute (3) Coagulopathy: Code(s): D68.9 - Coagulation defect, unspecified Status: Acute (4) Lactic acidosis: Code(s): E87.20 - Acidosis, unspecified Status: Acute Assessment and Plan: Monitor (5) Hyponatremia: Code(s): E87.1 - Hypo-osmolality and hyponatremia Status: Acute Assessment and Plan: Monitor electrolytes (6) Hepatic encephalopathy: Code(s): K76.82 - Hepatic encephalopathy Status: Acute Assessment and Plan: Improved (7) Megaloblastic anemia: Code(s): D53.1 - Other megaloblastic anemias, not elsewhere classified Status: Acute Subjective Date/time seen: 09/28/22 12:12 No complaints Exam Narrative: Patient is comfortable, NAD HEENT: eyes are clear and icteric LUNGS: Normal respiratory effort ABD: Distended Lower extremities: no edema SKIN:jaundiced Neuro: grossly intact. Objective Data Vital Signs Vital Signs: Vital Signs - 24 hr 09/27/22 14:00 09/27/22 20:58 09/28/22 05:42 Temperature 98.3 F 97.4 F L 97.9 F Pulse Rate 114 H 88 90 Respiratory Rate 16 16 16 Blood Pressure 100/65 94/49 L 104/59 L Pulse Oximetry 99 99 100 Oxygen Delivery 09/28/22 09:15 Temperature Pulse Rate Respiratory Rate Blood Pressure Pulse Oximetry 96 Oxygen Delivery Room Air Intake/Output Intake/Output: Intake & Output 09/25/22 09/26/22 09/27/22 09/28/22 23:59 23:59 23:59 23:59 Intake Total 1280 2570 2050 390 Output Total 101 894 2802 800 Balance 580 1670 750 -410 Meds/Results Medications: Active Medications Generic Name Dose Route Start Last Admin Trade Name Freq PRN Reason Stop Dose Admin Hydrocodone Bitart/Acetaminophen 1 tab 09/28/22 12:11 Hydrocodone/Acetaminophen (*Crx) 5-325 Mg Tablet PO BID PRN Pain Rated 7-10 Benzonatate 100 mg 09/26/22 23:44 09/27/22 18:35 Benzonatate 100 Mg Capsule PO 100 mg TID PRN Administration Cough Calcium Carbonate 1,000 mg 09/27/22 09:00 09/28/22 08:18 Calcium Carbonate (Oscal) 500 Mg Tablet PO 1,000 mg DAILY DANYEL Administration Furosemide 40 mg 09/25/22 14:45 09/28/22 08:20 Furosemide Inj 40 Mg/4 Ml Vial IV PUSH 40 mg DAILY DANYEL Administration Hydroxyzine HCl 25 mg 09/26/22 09:39 09/27/22 21:13 Hydroxyzine Hcl 25 Mg Tablet PO 25 mg Q6H PRN Administration Itching Thiamine HCl 500 mg in 100 mls @ 200 mls/hr 09/25/22 06:15 09/28/22 06:26 IVPB 200 mls/hr Q8HR DANYEL Administration Lactulose 20 gm 09/26/22 09:00 09/28/22 08:17 Lactulose 20 Gm/30 Ml Udc PO 20 gm QAM DANYEL Administration Pantoprazole Sodium 40 mg 09/26/22 09:00 09/28/22 08:20 Pantoprazole 40 Mg Tablet PO 40 mg QAM DANYEL Administration Phytonadione 10 mg 09/26/22 09:00 09/28/22 08:19 Phytonadione 5 Mg Tablet PO 09/29/22 08:59 10 mg DAILY DANYEL Administration Prednisone 40 mg 09/25/22 08:00 09/28/22 08:19 Prednisone 20 Mg Tablet PO 40 mg DAILY@0800 DANYEL Administration Vit/Calcium/Iron/Folic Ac 2 tab 09/27/22 09:00 09/28/22 08:19 Multivit/Min/Pren/Fol Ac/Iron Tablet PO 2 tab DAILY DANYEL Administration Spironolactone 12.5 mg 09/25/22 17:00 09/28/22 08:20 Spironolactone 12.5 Mg Tablet PO 12.5 mg BID DANYEL Administration Radiology Results: ITS Impressions Head CT 09/24/22 17:05 IMPRESSION: No acute intracranial process. Abdomen/Pelvis CT
[2022-09-28] MEDS: HYDROcodone/acetaminophen (*CRX) 5-325 MG TABLET 1 TAB PO (13:49)
[2022-09-28 14:00] VITALS: BP 95/56; PULSE 80; RESP 16; TEMP 35.9; O2SAT 98
--- NOTE | 2022-09-28 14:43 | WPDGIPROGNO ---
Progress Note: A&P Assessment and Plan (1) Alcoholic hepatitis: Code(s): K70.10 - Alcoholic hepatitis without ascites Status: Acute Assessment and Plan: severe etoh hepatitis with elevated discriminant function, she is now on steroids she is eating, continue nutritional support, mvi, thiamine will need referral to hepatology at tertiary center when bed available vs outpatient (2) Hepatic encephalopathy: Code(s): K76.82 - Hepatic encephalopathy Status: Acute Assessment and Plan: on lactulose (3) Coagulopathy: Code(s): D68.9 - Coagulation defect, unspecified Status: Acute Assessment and Plan: s/p vit K from liver disease (4) Megaloblastic anemia: Code(s): D53.1 - Other megaloblastic anemias, not elsewhere classified Status: Acute Assessment and Plan: hb stable at 10-11, no signs of bleeding egd as outpatient to assess if phg, varices, etc Subjective Date/time seen: 09/28/22 14:43 Interval history: today she is having more pain in legs and did not walk much. She is trying to eat (at baseline can not eat much since she had gatric bypass surgery) Review of Systems Review of Systems: All systems reviewed & are unremarkable except as noted in HPI and below Exam Const: General: comfortable and no acute distress Other: jaundice HENMT: Face/Nose/Sinus: Normal nares present Eyes: Other: icteric sclerae Neck: Neck: supple Resp: Effort & Inspection: normal respiratory effort Cardio: Rate: regular rate GI: GI Palp: Yes Soft to palpation, No Tenderness to palpation present (GI) and No Guarding due to palpation present (GI) Auscultation: normal bowel sounds Skin: Other: jaundice Neuro: Speech: normal speech Motor exam (neuro): 5/5 motor strength present throughout Extrem: Other: pitting edema both legs Psych: Affect: Anxious affect present Objective Data Vital Signs Vital Signs: Vital Signs - 24 hr 09/27/22 20:58 09/28/22 05:42 09/28/22 09:15 Temperature 97.4 F L 97.9 F Pulse Rate 88 90 Respiratory Rate 16 16 Blood Pressure 94/49 L 104/59 L Pulse Oximetry 99 100 96 Oxygen Delivery Room Air Intake/Output Intake/Output: Intake & Output 09/25/22 09/26/22 09/27/22 09/28/22 23:59 23:59 23:59 23:59 Intake Total 1280 2570 2050 850 Output Total 829 599 5490 1700 Balance 580 1670 750 -850 Meds/Results Medications: Active Medications Generic Name Dose Route Start Last Admin Trade Name Freq PRN Reason Stop Dose Admin Hydrocodone Bitart/Acetaminophen 1 tab 09/28/22 12:11 09/28/22 13:49 Hydrocodone/Acetaminophen (*Crx) 5-325 Mg Tablet PO 1 tab BID PRN Administration Pain Rated 7-10 Benzonatate 100 mg 09/26/22 23:44 09/27/22 18:35 Benzonatate 100 Mg Capsule PO 100 mg TID PRN Administration Cough Calcium Carbonate 1,000 mg 09/27/22 09:00 09/28/22 08:18 Calcium Carbonate (Oscal) 500 Mg Tablet PO 1,000 mg DAILY DANYEL Administration Furosemide 40 mg 09/25/22 14:45 09/28/22 08:20 Furosemide Inj 40 Mg/4 Ml Vial IV PUSH 40 mg DAILY DANYEL Administration Hydroxyzine HCl 25 mg 09/26/22 09:39 09/27/22 21:13 Hydroxyzine Hcl 25 Mg Tablet PO 25 mg Q6H PRN Administration Itching Thiamine HCl 500 mg in 100 mls @ 200 mls/hr 09/25/22 06:15 09/28/22 13:27 IVPB 200 mls/hr Q8HR DANYEL Administration Lactulose 20 gm 09/26/22 09:00 09/28/22 08:17 Lactulose 20 Gm/30 Ml Udc PO 20 gm QAM DANYEL Administration Pantoprazole Sodium 40 mg 09/26/22 09:00 09/28/22 08:20 Pantoprazole 40 Mg Tablet PO 40 mg QAM DANYEL Administration Phytonadione 10 mg 09/26/22 09:00 09/28/22 08:19 Phytonadione 5 Mg Tablet PO 09/29/22 08:59 10 mg DAILY DANYEL Administration Prednisone 40 mg 09/25/22 08:00 09/28/22 08:19 Prednisone 20 Mg Tablet PO 40 mg DAILY@0800 DANYEL Administration Vit/Calcium/Iron/Folic Ac 2 tab 09/27/22
[2022-09-28 20:50] VITALS: BP 95/55; PULSE 91; RESP 16; TEMP 36.6; O2SAT 100
[2022-09-29 04:55] VITALS: BP 109/65; PULSE 90; RESP 16; TEMP 36.2; O2SAT 100
[2022-09-29] MEDS: THIAMINE 500 MG/NS 100 ML 500 MG/100 ML BAG 200 MG IVPB ×3 (05:37→23:45)
[2022-09-29 06:41] LABS: Hematocrit 31.3 % (37.0-47.0); Mean Corpuscular HGB Conc 35.1 g/dl (32-36); Mean Corpuscular Hemoglobin 37.2 pg (26-34); Mean Corpuscular Volume 105.7 fl (80-100); Mean Platelet Volume 10.2 fl (7.4-10.4); Platelet Count Result 164 k/mm3 (150-375); Red Blood Count 2.96 M/mm3 (4.2-5.4); Red Cell Distribution Width 15.8 % (11.5-14.5); White Blood Count 11.9 K/mm3 (4.5-10.0)
[2022-09-29 06:49] LABS: INR 3.1; Prothrombin Time 30.6 Seconds (11.1-14.7)
[2022-09-29 07:03] LABS: Ammonia 61 umol/L (9-30)
[2022-09-29 07:04] LABS: Alanine Aminotransferase 240 U/L (6-35); Albumin Level 2.6 g/dL (3.5-5.1); Alkaline Phosphatase 222 U/L (38-126); Anion Gap 7 mmol/L (8-16); Aspartate Amino Transferase 389 U/L (14-36); Bilirubin,Total 22.7 mg/dL (0.2-1.3); Blood Urea Nitrogen 47 mg/dL (7-17); Calcium 7.2 mg/dL (8.4-10.2); Carbon Dioxide 20 mmol/L (22-30); Chloride 94 mmol/L (98-107); Estimated CRCL calculation 48 ml/min; Estimated Glomerular Filt Rate 47; Glucose 139 mg/dL (65-110); Magnesium 3.2 mg/dL (1.6-2.3); Potassium 3.4 mmol/L (3.4-5.0); Sodium 121 mmol/L (137-145)
[2022-09-29] MEDS: predniSONE 20 MG TABLET 40 MG PO (08:15)
[2022-09-29] MEDS: PANTOPRAZOLE 40 MG TABLET PO (08:15)
[2022-09-29] MEDS: CALCIUM CARBONATE (OSCAL) 500 MG TABLET 1000 MG PO (08:15)
[2022-09-29] MEDS: MULTIVIT/MIN/PREN/FOL AC/IRON TABLET 2 TAB PO (08:15)
[2022-09-29] MEDS: SPIRONOLACTONE 12.5 MG TABLET PO (08:15)
[2022-09-29] MEDS: LACTULOSE 20 GM/30 ML UDC PO (08:16)
[2022-09-29] MEDS: FUROSEMIDE INJ 40 MG/4 ML VIAL IV PUSH (08:16)
--- NOTE | 2022-09-29 10:27 | PM.IMPN ---
Progress Note: A&P Assessment and Plan (1) Alcoholic cirrhosis of liver with ascites: Code(s): K70.31 - Alcoholic cirrhosis of liver with ascites Status: Acute Assessment and Plan: Continue prednisone. Appreciate GI input (2) Acute liver failure: Qualifiers: Hepatic coma status: without hepatic coma Qualified Code(s): K72.00 - Acute and subacute hepatic failure without coma Code(s): K72.00 - Acute and subacute hepatic failure without coma Status: Acute Assessment and Plan: Appreciate GI input. (3) Coagulopathy: Code(s): D68.9 - Coagulation defect, unspecified Status: Acute Assessment and Plan: Secondary to above. (4) Lactic acidosis: Code(s): E87.20 - Acidosis, unspecified Status: Acute Assessment and Plan: Monitor (5) Hyponatremia: Code(s): E87.1 - Hypo-osmolality and hyponatremia Status: Acute Assessment and Plan: Monitor electrolytes Sodium 121 Nephrology consult Question what to do with diuretics. (6) Hepatic encephalopathy: Code(s): K76.82 - Hepatic encephalopathy Status: Acute Assessment and Plan: Improved (7) Megaloblastic anemia: Code(s): D53.1 - Other megaloblastic anemias, not elsewhere classified Status: Acute Subjective Date/time seen: 09/29/22 10:27 Lower extremity edema is slightly worse. Sodium is low as well. Exam Narrative: Patient is comfortable, NAD HEENT: eyes are clear and icteric LUNGS: Normal respiratory effort ABD: Distended Lower extremities: no edema SKIN:jaundiced Neuro: grossly intact. Objective Data Vital Signs Vital Signs: Vital Signs - 24 hr 09/28/22 14:00 09/28/22 20:50 09/29/22 04:55 Temperature 96.6 F L 97.8 F 97.1 F L Pulse Rate 80 91 90 Respiratory Rate 16 16 16 Blood Pressure 95/56 L 95/55 L 109/65 Pulse Oximetry 98 100 100 Intake/Output Intake/Output: Intake & Output 09/26/22 09/27/22 09/28/22 09/29/22 23:59 23:59 23:59 23:59 Intake Total 2570 2050 1630 580 Output Total 900 1300 2300 Balance 1670 750 -670 580 Meds/Results Medications: Active Medications Generic Name Dose Route Start Last Admin Trade Name Freq PRN Reason Stop Dose Admin Hydrocodone Bitart/Acetaminophen 1 tab 09/28/22 12:11 09/28/22 13:49 Hydrocodone/Acetaminophen (*Crx) 5-325 Mg Tablet PO 1 tab BID PRN Administration Pain Rated 7-10 Benzonatate 100 mg 09/26/22 23:44 09/27/22 18:35 Benzonatate 100 Mg Capsule PO 100 mg TID PRN Administration Cough Calcium Carbonate 1,000 mg 09/27/22 09:00 09/29/22 08:15 Calcium Carbonate (Oscal) 500 Mg Tablet PO 1,000 mg DAILY DANYEL Administration Furosemide 40 mg 09/25/22 14:45 09/29/22 08:16 Furosemide Inj 40 Mg/4 Ml Vial IV PUSH 40 mg DAILY DANYEL Administration Hydroxyzine HCl 25 mg 09/26/22 09:39 09/27/22 21:13 Hydroxyzine Hcl 25 Mg Tablet PO 25 mg Q6H PRN Administration Itching Thiamine HCl 500 mg in 100 mls @ 200 mls/hr 09/25/22 06:15 09/29/22 05:37 IVPB 200 mls/hr Q8HR DANYEL Administration Lactulose 20 gm 09/26/22 09:00 09/29/22 08:16 Lactulose 20 Gm/30 Ml Udc PO 20 gm QAM DANYEL Administration Pantoprazole Sodium 40 mg 09/26/22 09:00 09/29/22 08:15 Pantoprazole 40 Mg Tablet PO 40 mg QAM DANYEL Administration Prednisone 40 mg 09/25/22 08:00 09/29/22 08:15 Prednisone 20 Mg Tablet PO 40 mg DAILY@0800 DANYEL Administration Vit/Calcium/Iron/Folic Ac 2 tab 09/27/22 09:00 09/29/22 08:15 Multivit/Min/Pren/Fol Ac/Iron Tablet PO 2 tab DAILY DANYEL Administration Spironolactone 12.5 mg 09/25/22 17:00 09/29/22 08:15 Spironolactone 12.5 Mg Tablet PO 12.5 mg BID DANYEL Administration Radiology Results: ITS Impressions Head CT 09/24/22 17:05 IMPRESSION: No acute intracranial process. Abdomen/Pelvis CT 09/24/22 17:08 IMPRESSION: Hep
[2022-09-29 13:50] LABS: Creatinine Urine 72.6 mg/dL; Total Protein Urine Random 17 mg/dL; Ur Ttl Prot Creatinine Ratio 0.23 mg/mg (0-0.20); Urea Random Urine 625 MG/DL
[2022-09-29 13:52] LABS: Sodium Urine Random < 5 meq/L
[2022-09-29 13:59] LABS: Eosinophil Urine None Seen % (None Seen); Urine Eos QC 2nd Tech Confirmed
--- NOTE | 2022-09-29 14:14 | PM.CNNEP ---
Assessment and Plan Assessment and plan (1) Hyponatremia: Code(s): E87.1 - Hypo-osmolality and hyponatremia Status: Acute Assessment and Plan: acute versus chronic versus acute on chronic(?) presumably related to liver disease and alcohol abuse agree with fluid restriction continues IV lasix for now (given lower LE edema) however, if sodium worsens, may need to hold check TSH, cortisol, SPEP, UPEP, and serum/urine osmolality, as well as urine electrolytes would try to avoid salt tabs and 3% saline if possible given her liver issues follow trend of repeat sodium levels (2) Alcoholic hepatitis: Code(s): K70.10 - Alcoholic hepatitis without ascites Status: Acute Assessment and Plan: empirically started on steroids Gastroenterology following monitor LFTs (3) Anemia: Code(s): D64.9 - Anemia, unspecified Status: Acute Assessment and Plan: possibly chronic follow trend of H/H (4) Hepatic encephalopathy: Code(s): K76.82 - Hepatic encephalopathy Status: Acute Assessment and Plan: trending ammonia levels on lactulose (5) Coagulopathy: Code(s): D68.9 - Coagulation defect, unspecified Status: Acute Assessment and Plan: due to liver disease Vitamin K and FFP as needed follow INR Will continue to follow. History of Present Illness Reason for Consult Consult date: 09/29/22 Reason for consult: hyponatremia Chief Complaint Chief complaint: Decompensated Hepatic Failure History of Present Illness Narrative: Most of the information that I have obtained is from review of the electronic medical records as is difficult to get a full incomplete history from the patient as she is somewhat slow to respond in answering my questions. The patient is a 57-year-old female with a past medical history as outlined below presented to [facility] further evaluation altered mental status and jaundice. The patient just recently moved to this area about a month ago and has been staying with her son. It was around that time she became acutely nausea, and diarrhea. Apparently, several other family members had these same symptoms so was felt this was a viral gastroenteritis. She recovered from that illness, however, her son noticed that more recently, in the last 5 days prior to admission, that her skin appeared to be more yellow Although apparently, on further assessment, the yellowing of her skin may be started couple weeks ago which is seems more worse /prominent at this time. Associated with the skin change is the fact that she has been acutely confused and her responses to simple questions seem to take her a longer period of time in general. Furthermore, the patient is self apparently was aware that she has been having difficulty expressing answers to simple questions despite her best effort. She denies any overt fevers, chills abdominal pain melena, hematochezia, palpitations, or syncope. She does report though that she has noticed that her abdomen has been more /slightly distended in the last week as well. Given these constellation of symptoms as mentioned, she presented to the ER for further assessment. Workup and evaluation emergency room demonstrated the patient be hemodynamically stable but with clear evidence of jaundice by physical exam. Routine blood tests were no worthy for significant hyponatremia but with normal renal function, elevated liver function tests in association with a coagulopathy, and an elevated ammonia level. CT scan of the head was negative for any acute intracranial process but a subsequent CT scan of the abdomen/pelvis was significant for hepatomegaly and a small amount of ascites. On further questioning, the patient has an extensive history of alcohol use/abuse for last six years if not longer. given these laboratory abnormalities in conjunction with her symptoms on presentation, she was admitted
[2022-09-29 15:38] VITALS: BP 121/64; PULSE 97; RESP 16; TEMP 36.3; O2SAT 99
--- NOTE | 2022-09-29 16:26 | WPDGIPROGNO ---
Progress Note: A&P Assessment and Plan (1) Alcoholic hepatitis: Code(s): K70.10 - Alcoholic hepatitis without ascites Status: Acute Assessment and Plan: severe etoh hepatitis with elevated discriminant function, she is now on steroids feeling worse today and more confused, also leg edema and noted that Na is lower will need referral to hepatology at tertiary center when bed available prognosis is guarded (2) Hepatic encephalopathy: Code(s): K76.82 - Hepatic encephalopathy Status: Acute Assessment and Plan: on lactulose (3) Coagulopathy: Code(s): D68.9 - Coagulation defect, unspecified Status: Acute Assessment and Plan: s/p vit K from liver disease (4) Megaloblastic anemia: Code(s): D53.1 - Other megaloblastic anemias, not elsewhere classified Status: Acute Assessment and Plan: hb stable at 10-11, no signs of bleeding egd as outpatient to assess if phg, varices, etc (5) Hyponatremia: Code(s): E87.1 - Hypo-osmolality and hyponatremia Status: Acute Assessment and Plan: more hyponatremia and leg edema creatinine 1.2- continue to monitor nephrology to see Subjective Date/time seen: 09/29/22 16:26 Interval history: doing worse today, generalized weakness, leg edema and feels confused. Less energy Review of Systems Review of Systems: All systems reviewed & are unremarkable except as noted in HPI and below Exam Const: General: comfortable and no acute distress Other: jaundice, looks ill HENMT: Face/Nose/Sinus: Normal nares present Eyes: Other: icteric sclerae Neck: Neck: supple Resp: Effort & Inspection: normal respiratory effort Cardio: Rate: regular rate GI: GI Palp: Yes Soft to palpation, No Tenderness to palpation present (GI) and No Guarding due to palpation present (GI) Auscultation: normal bowel sounds Skin: Other: jaundice Neuro: Speech: normal speech Motor exam (neuro): 5/5 motor strength present throughout Extrem: Other: ++ pitting edema both legs Psych: Affect: Anxious affect present Objective Data Vital Signs Vital Signs: Vital Signs - 24 hr 09/28/22 20:50 09/29/22 04:55 09/29/22 15:38 Temperature 97.8 F 97.1 F L 97.4 F L Pulse Rate 91 90 97 Respiratory Rate 16 16 16 Blood Pressure 95/55 L 109/65 121/64 Pulse Oximetry 100 100 99 Intake/Output Intake/Output: Intake & Output 09/26/22 09/27/22 09/28/22 09/29/22 23:59 23:59 23:59 23:59 Intake Total 2570 2050 1630 1320 Output Total 900 1300 2300 700 Balance 1670 750 -670 620 Meds/Results Medications: Active Medications Generic Name Dose Route Start Last Admin Trade Name Freq PRN Reason Stop Dose Admin Hydrocodone Bitart/Acetaminophen 1 tab 09/28/22 12:11 09/28/22 13:49 Hydrocodone/Acetaminophen (*Crx) 5-325 Mg Tablet PO 1 tab BID PRN Administration Pain Rated 7-10 Benzonatate 100 mg 09/26/22 23:44 09/27/22 18:35 Benzonatate 100 Mg Capsule PO 100 mg TID PRN Administration Cough Calcium Carbonate 1,000 mg 09/27/22 09:00 09/29/22 08:15 Calcium Carbonate (Oscal) 500 Mg Tablet PO 1,000 mg DAILY DANYEL Administration Furosemide 40 mg 09/25/22 14:45 09/29/22 08:16 Furosemide Inj 40 Mg/4 Ml Vial IV PUSH 40 mg DAILY DANYEL Administration Hydroxyzine HCl 25 mg 09/26/22 09:39 09/27/22 21:13 Hydroxyzine Hcl 25 Mg Tablet PO 25 mg Q6H PRN Administration Itching Thiamine HCl 500 mg in 100 mls @ 200 mls/hr 09/25/22 06:15 09/29/22 14:35 IVPB Infused Q8HR DANYEL Infusion Lactulose 20 gm 09/26/22 09:00 09/29/22 08:16 Lactulose 20 Gm/30 Ml Udc PO 20 gm QAM DANYEL Administration Pantoprazole Sodium 40 mg 09/26/22 09:00 09/29/22 08:15 Pantoprazole 40 Mg Tablet PO 40 mg QAM DANYEL Administration Prednisone 40 mg 09/25/22 08:00 09/29/22 08:15 Prednisone 20 Mg Tablet PO 40 mg DAILY@0800 DANYEL Administration Vit/C
[2022-09-29] MEDS: SPIRONOLACTONE 50 MG TABLET PO (16:49)
[2022-09-29] MEDS: HYDROcodone/acetaminophen (*CRX) 5-325 MG TABLET 1 TAB PO (16:53)
[2022-09-29 20:20] VITALS: PULSE 97; RESP 16; O2SAT 99
[2022-09-29 22:00] VITALS: BP 127/60; PULSE 95; RESP 20; TEMP 36.1; O2SAT 100
[2022-09-30] VITALS (15 sets, daily range): BP systolic 80–105; BP diastolic 40–66; PULSE 91–128; RESP 10–20; TEMP 35.2–37.1; O2SAT 98–100
[2022-09-30 08:12] LABS: Hematocrit 31.2 % (37.0-47.0); Hemoglobin 11.1 g/dL (12.0-15.0); Mean Corpuscular HGB Conc 35.6 g/dl (32-36); Mean Corpuscular Hemoglobin 37.4 pg (26-34); Mean Corpuscular Volume 105.1 fl (80-100); Mean Platelet Volume 10.7 fl (7.4-10.4); Platelet Count Result 156 k/mm3 (150-375); Red Blood Count 2.97 M/mm3 (4.2-5.4); Red Cell Distribution Width 15.9 % (11.5-14.5); White Blood Count 13.1 K/mm3 (4.5-10.0)
[2022-09-30 08:27] LABS: Alanine Aminotransferase 231 U/L (6-35); Albumin Level 2.5 g/dL (3.5-5.1); Alkaline Phosphatase 228 U/L (38-126); Anion Gap 8 mmol/L (8-16); Aspartate Amino Transferase 319 U/L (14-36); Bilirubin,Total 24.7 mg/dL (0.2-1.3); Blood Urea Nitrogen 51 mg/dL (7-17); Calcium 7.2 mg/dL (8.4-10.2); Carbon Dioxide 18 mmol/L (22-30); Chloride 96 mmol/L (98-107); Estimated CRCL calculation 48 ml/min; Estimated Glomerular Filt Rate 47; Glucose 154 mg/dL (65-110); Magnesium 3.4 mg/dL (1.6-2.3); Potassium 3.7 mmol/L (3.4-5.0); Sodium 122 mmol/L (137-145)
[2022-09-30] MEDS: MULTIVIT/MIN/PREN/FOL AC/IRON TABLET 2 TAB PO (08:48)
[2022-09-30] MEDS: LACTULOSE 20 GM/30 ML UDC PO ×2 (08:48→15:24)
[2022-09-30] MEDS: CALCIUM CARBONATE (OSCAL) 500 MG TABLET 1000 MG PO (08:48)
[2022-09-30] MEDS: PANTOPRAZOLE 40 MG TABLET PO (08:48)
[2022-09-30] MEDS: SPIRONOLACTONE 50 MG TABLET PO (08:48)
[2022-09-30] MEDS: predniSONE 20 MG TABLET 40 MG PO (08:48)
[2022-09-30] MEDS: FUROSEMIDE INJ 40 MG/4 ML VIAL IV PUSH (09:53)
--- NOTE | 2022-09-30 11:59 | PM.IMPN ---
Progress Note: A&P Assessment and Plan (1) Alcoholic cirrhosis of liver with ascites: Code(s): K70.31 - Alcoholic cirrhosis of liver with ascites Status: Acute Assessment and Plan: Continue prednisone. Appreciate GI input Maddrey score = very poor prognosis Awaiting on transfer to [facility] continue diuretics (2) Acute liver failure: Code(s): K72.00 - Acute and subacute hepatic failure without coma Status: Acute Assessment and Plan: Appreciate GI input. (3) Coagulopathy: Code(s): D68.9 - Coagulation defect, unspecified Status: Acute Assessment and Plan: Secondary to above. (4) Lactic acidosis: Code(s): E87.20 - Acidosis, unspecified Status: Acute Assessment and Plan: Monitor (5) Hyponatremia: Code(s): E87.1 - Hypo-osmolality and hyponatremia Status: Acute Assessment and Plan: Monitor electrolytes Sodium 122 Nephrology consult Question what to do with diuretics. (6) Hepatic encephalopathy: Code(s): K76.82 - Hepatic encephalopathy Status: Acute Assessment and Plan: Improved (7) Megaloblastic anemia: Code(s): D53.1 - Other megaloblastic anemias, not elsewhere classified Status: Acute Subjective Date/time seen: 09/30/22 11:59 no improvement Exam Narrative: Patient is comfortable, NAD HEENT: eyes are clear and icteric LUNGS: Normal respiratory effort ABD: Distended Lower extremities: no edema SKIN:jaundiced Neuro: grossly intact. Objective Data Vital Signs Vital Signs: Vital Signs - 24 hr 09/29/22 15:38 09/29/22 20:20 09/29/22 22:00 Temperature 97.4 F L 97.0 F L Pulse Rate 97 97 95 Respiratory Rate 16 16 20 Blood Pressure 121/64 127/60 Pulse Oximetry 99 99 100 Oxygen Delivery Room Air 09/30/22 06:00 09/30/22 08:50 Temperature 97.4 F L Pulse Rate 102 H Respiratory Rate 16 Blood Pressure 105/57 L Pulse Oximetry 100 Oxygen Delivery Room Air Intake/Output Intake/Output: Intake & Output 09/27/22 09/28/22 09/29/22 09/30/22 23:59 23:59 23:59 23:59 Intake Total 2050 1630 1560 260 Output Total 1300 2300 1100 551 Balance 750 -670 460 -291 Meds/Results Medications: Active Medications Generic Name Dose Route Start Last Admin Trade Name Tenzinq PRN Reason Stop Dose Admin Hydrocodone Bitart/Acetaminophen 1 tab 09/28/22 12:11 09/29/22 16:53 Hydrocodone/Acetaminophen (*Crx) 5-325 Mg Tablet PO 1 tab BID PRN Administration Pain Rated 7-10 Benzonatate 100 mg 09/26/22 23:44 09/27/22 18:35 Benzonatate 100 Mg Capsule PO 100 mg TID PRN Administration Cough Calcium Carbonate 1,000 mg 09/27/22 09:00 09/30/22 08:48 Calcium Carbonate (Oscal) 500 Mg Tablet PO 1,000 mg DAILY DANYEL Administration Furosemide 40 mg 09/25/22 14:45 09/30/22 09:53 Furosemide Inj 40 Mg/4 Ml Vial IV PUSH 40 mg DAILY DANYEL Administration Hydroxyzine HCl 25 mg 09/26/22 09:39 09/27/22 21:13 Hydroxyzine Hcl 25 Mg Tablet PO 25 mg Q6H PRN Administration Itching Thiamine HCl 500 mg in 100 mls @ 200 mls/hr 09/25/22 06:15 09/30/22 06:01 IVPB Not Given Q8HR DANYEL Lactulose 20 gm 09/30/22 17:00 Lactulose 20 Gm/30 Ml Udc PO BID DANYEL Pantoprazole Sodium 40 mg 09/26/22 09:00 09/30/22 08:48 Pantoprazole 40 Mg Tablet PO 40 mg QAM DANYEL Administration Prednisone 40 mg 09/25/22 08:00 09/30/22 08:48 Prednisone 20 Mg Tablet PO 40 mg DAILY@0800 DANYEL Administration Vit/Calcium/Iron/Folic Ac 2 tab 09/27/22 09:00 09/30/22 08:48 Multivit/Min/Pren/Fol Ac/Iron Tablet PO 2 tab DAILY DANYEL Administration Spironolactone 50 mg 09/29/22 17:00 09/30/22 08:48 Spironolactone 50 Mg Tablet PO 50 mg BID DANYEL Administration Radiology Results: ITS Impressions Head CT 09/24/22 17:05 IMPRESSION: No acute intracranial process. Abdomen/Pelvis CT 09/24/22 17:0
[2022-09-30 12:03] LABS: Thyroid Stimulating Hormone Reflex 0.808 uIU/mL (0.465-4.68)
--- NOTE | 2022-09-30 12:47 | PCNWS ---
Weekly nutritional screen. Patient is tolerating current diet with adequate intake. No weight loss reported. No nutritional needs at this time.
[2022-09-30 13:30] LABS: Basophils Percent Auto 0.2 % (0.2-1.2); Eosinophils Percent Auto 0.1 % (0-4.4); Hematocrit 24.4 % (37.0-47.0); Hemoglobin 8.6 g/dL (12.0-15.0); Immature Granulocyte Absolute 0.26 K/mm3 (0.00-0.031); Immature Granulocyte Percent A 1.8 % (0-0.5); Lymphocytes Absolute Auto 0.31 K/mm3 (0.9-3.2); Lymphocytes Percent Auto 2.1 % (18.3-44.2); Mean Corpuscular HGB Conc 35.2 g/dl (32-36); Mean Corpuscular Hemoglobin 37.9 pg (26-34); Mean Corpuscular Volume 107.5 fl (80-100); Mean Platelet Volume 10.8 fl (7.4-10.4); Monocytes Absolute Auto 0.9 K/mm3 (0.1-0.6); Monocytes Percent Auto 6.1 % (2.6-8.5); Neutrophils Absolute Auto 13.1 K/mm3 (1.3-6.7); Neutrophils Percent Auto 89.7 % (45.5-73.1); Nucleated Red Blood Cells Perc 0.1 % (0.0-0.2); Platelet Count Result 153 k/mm3 (150-375); Red Blood Count 2.27 M/mm3 (4.2-5.4); Red Cell Distribution Width 16.1 % (11.5-14.5); White Blood Count 14.6 K/mm3 (4.5-10.0)
--- NOTE | 2022-09-30 13:40 | PM.PNNEP ---
Progress Note: A&P Assessment and Plan (1) Hyponatremia: Code(s): E87.1 - Hypo-osmolality and hyponatremia Status: Acute Assessment and Plan: acute versus chronic versus acute on chronic(?) presumably related to liver disease and alcohol abuse agree with fluid restriction continues IV lasix for now (given lower LE edema) as tolerated by hemodynamics however, if sodium worsens, may need to hold follow-up on TSH, cortisol, SPEP, UPEP, and serum/urine osmolality, as well as urine electrolytes would try to avoid salt tabs and 3% saline if possible given her liver issues follow trend of repeat sodium levels (2) Alcoholic hepatitis: Code(s): K70.10 - Alcoholic hepatitis without ascites Status: Acute Assessment and Plan: empirically started on steroids Gastroenterology following monitor LFTs (3) Anemia: Code(s): D64.9 - Anemia, unspecified Status: Acute Assessment and Plan: drop in H/H noted started on PPI and well as octreotide follow trend of H/H (4) Hepatic encephalopathy: Code(s): K76.82 - Hepatic encephalopathy Status: Acute Assessment and Plan: trending ammonia levels on lactulose (5) Coagulopathy: Code(s): D68.9 - Coagulation defect, unspecified Status: Acute Assessment and Plan: due to liver disease Vitamin K and FFP as needed follow INR Will continue to follow. Subjective Date/time seen: 09/30/22 13:40 Compared to when I last saw her, she seems more confused and more hypotensive with nursing reporting bright blood per rectum earlier today; still with significant lower extremity swelling/edema in association with pain; labs with still notable for elevated LFTs along with ongoing coagulopathy with drop in H/H by recent labs; sodium remains about the same. Exam Narrative: General: ill appearing female in NAD but lethargic/somnolent Heart: normal S1 and S2; no rub Lungs: clear anteriorly but decreased at basees Abdomen: soft, nontender, nondistended, positive bowel sounds Extremities: no cyanosis or clubbing; 2+ edema Skin: jaundice evident Objective Data Vital Signs Vital Signs: Vital Signs Temp Pulse Resp BP Pulse Ox O2 Del Method 09/30/22 13:00 97.2 F L 91 18 82/48 L 98 09/30/22 08:50 Room Air 09/30/22 06:00 97.4 F L 102 H 16 105/57 L 100 09/29/22 22:00 97.0 F L 95 20 127/60 100 09/29/22 20:20 97 16 99 Room Air Intake/Output Intake/Output: Intake & Output 09/27/22 09/28/22 09/29/22 09/30/22 23:59 23:59 23:59 23:59 Intake Total 2050 1630 1560 590 Output Total 1300 2300 1100 551 Balance 750 -670 460 39 Meds/Results Medications: Active Medications Generic Name Dose Route Start Last Admin Trade Name Freq PRN Reason Stop Dose Admin Hydrocodone Bitart/Acetaminophen 1 tab 09/28/22 12:11 09/30/22 15:24 Hydrocodone/Acetaminophen (*Crx) 5-325 Mg Tablet PO 1 tab BID PRN Administration Pain Rated 7-10 Benzonatate 100 mg 09/26/22 23:44 09/27/22 18:35 Benzonatate 100 Mg Capsule PO 100 mg TID PRN Administration Cough Calcium Carbonate 1,000 mg 09/27/22 09:00 09/30/22 08:48 Calcium Carbonate (Oscal) 500 Mg Tablet PO 1,000 mg DAILY DANYEL Administration Hydroxyzine HCl 25 mg 09/26/22 09:39 09/27/22 21:13 Hydroxyzine Hcl 25 Mg Tablet PO 25 mg Q6H PRN Administration Itching Thiamine HCl 500 mg in 100 mls @ 200 mls/hr 09/25/22 06:15 09/30/22 14:31 IVPB 200 mls/hr Q8HR DANYEL Administration Sodium Chloride 250 mls @ 30 mls/hr 09/30/22 13:04 Normal Saline Iv IV CONT 09/30/22 21:23 .Q8H20M STA Sodium Chloride 250 mls @ 30 mls/hr 09/30/22 14:25 Normal Saline Iv IV CONT 09/30/22 22:44 .Q8H20M STA Octreotide Acetate 500 mcg/ 100 mls @ 10 mls/hr 09/30/22 14:35 09/30/22 15:23 Dextrose IV CONT 50 mcg/hr .Q10H DANYEL 10 mls/hr A
--- NOTE | 2022-09-30 13:40 | P.PNNP_ITS ---
Progress Note: A&P Assessment and Plan (1) Hyponatremia: Code(s): E87.1 - Hypo-osmolality and hyponatremia Status: Acute Assessment and Plan: * acute versus chronic versus acute on chronic(?) * presumably related to liver disease and alcohol abuse * agree with fluid restriction * continues IV lasix for now (given lower LE edema) as tolerated by hemodynamics * however, if sodium worsens, may need to hold * follow-up on TSH, cortisol, SPEP, UPEP, and serum/urine osmolality, as well as urine electrolytes * would try to avoid salt tabs and 3% saline if possible given her liver issues * follow trend of repeat sodium levels (2) Alcoholic hepatitis: Code(s): K70.10 - Alcoholic hepatitis without ascites Status: Acute Assessment and Plan: * empirically started on steroids * Gastroenterology following * monitor LFTs (3) Anemia: Code(s): D64.9 - Anemia, unspecified Status: Acute Assessment and Plan: * drop in H/H noted * started on PPI and well as octreotide * follow trend of H/H (4) Hepatic encephalopathy: Code(s): K76.82 - Hepatic encephalopathy Status: Acute Assessment and Plan: * trending ammonia levels * on lactulose (5) Coagulopathy: Code(s): D68.9 - Coagulation defect, unspecified Status: Acute Assessment and Plan: * due to liver disease * Vitamin K and FFP as needed * follow INR Will continue to follow. Subjective Date/time seen: 09/30/22 13:40 Compared to when I last saw her, she seems more confused and more hypotensive with nursing reporting bright blood per rectum earlier today; still with significant lower extremity swelling/edema in association with pain; labs with still notable for elevated LFTs along with ongoing coagulopathy with drop in H/H by recent labs; sodium remains about the same. Exam Narrative: General: ill appearing female in NAD but lethargic/somnolent Heart: normal S1 and S2; no rub Lungs: clear anteriorly but decreased at basees Abdomen: soft, nontender, nondistended, positive bowel sounds Extremities: no cyanosis or clubbing; 2+ edema Skin: jaundice evident Objective Data Vital Signs Vital Signs: Vital Signs Temp Pulse Resp BP Pulse Ox O2 Del Method 09/30/22 13:00 97.2 F L 91 18 82/48 L 98 09/30/22 08:50 Room Air 09/30/22 06:00 97.4 F L 102 H 16 105/57 L 100 09/29/22 22:00 97.0 F L 95 20 127/60 100 09/29/22 20:20 97 16 99 Room Air Intake/Output Intake/Output: Intake & Output 09/27/22 09/28/22 09/29/22 09/30/22 23:59 23:59 23:59 23:59 Intake Total 2050 1630 1560 590 Output Total 1300 2300 1100 551 Balance 750 -670 460 39 Meds/Results Medications: Active Medications Generic Name Dose Route Start Last Admin Trade Name Freq PRN Reason Stop Dose Admin Hydrocodone Bitart/Acetaminophen 1 tab 09/28/22 12:11 09/30/22 15:24 Hydrocodone/Acetaminophen (*Crx) 5-325 Mg Tablet PO 1 tab BID PRN Administration Pain Rated 7-10 Benzonatate 100 mg 09/26/22 23:44 09/27/22 18:35 Benzonatate 100 Mg Capsule PO 100 mg TID PRN Administration Cough
[2022-09-30 13:41] LABS: INR 3.6; Prothrombin Time 34.6 Seconds (11.1-14.7)
[2022-09-30 13:43] LABS: Ammonia 92 umol/L (9-30)
[2022-09-30 13:57] LABS: Anisocytosis 1+ (NORMAL); Macrocytosis 1+ (NORMAL); Platelet Estimate Adequate (Adequate); Schistocytes None Seen (NORMAL); Tear Drop Cells 1+ (NORMAL)
[2022-09-30] MEDS: THIAMINE 500 MG/NS 100 ML 500 MG/100 ML BAG 200 MG IVPB ×2 (14:31→21:40)
[2022-09-30] MEDS: PHYTONADIONE 5 MG TABLET 10 MG PO (14:32)
[2022-09-30] MEDS: CENTRAL LINE FLUSH 10 ML IV PUSH ×2 (14:33→21:39)
--- NOTE | 2022-09-30 14:34 | WPDGIPROGNO ---
Progress Note: A&P Assessment and Plan (1) Alcoholic hepatitis: Code(s): K70.10 - Alcoholic hepatitis without ascites Status: Acute Assessment and Plan: severe etoh hepatitis with elevated discriminant function, she is now on steroids meld score 35- poor prognosis and high mortality unfortunately she recently has been drinking heavily, [facility] accepted patient but no beds- will call again son understood critical condition and now he is leaning towards comfort measures because she is declining and has end stage liver disease, not a candidate for liver transplant because recent alcohol abuse (2) Hepatic encephalopathy: Code(s): K76.82 - Hepatic encephalopathy Status: Acute Assessment and Plan: on lactulose more confused (3) Coagulopathy: Code(s): D68.9 - Coagulation defect, unspecified Status: Acute Assessment and Plan: inr up to 3.6 despite vit K add FFP from liver disease (4) Hyponatremia: Code(s): E87.1 - Hypo-osmolality and hyponatremia Status: Acute Assessment and Plan: more hyponatremia and leg edema creatinine 1.2 (5) GIB (gastrointestinal bleeding): Code(s): K92.2 - Gastrointestinal hemorrhage, unspecified Status: Acute Assessment and Plan: in setting of worsening coagulopathy- given blood products start iv protonix and octreotide low threshold for scope but wonder if could be lower gib- son is also leaning towards comfort measures since mother status has declining last 2-3 days Subjective Date/time seen: 09/30/22 14:34 Interval history: patient is doing worse, more confused, pain in legs, also earlier had brb per rectum. Son at bedside, says that she is doing poorly Review of Systems Review of Systems: All systems reviewed & are unremarkable except as noted in HPI and below Exam Const: General: uncomfortable (because leg discomfort from edma) Other: jaundice, looks even sicker today HENMT: Face/Nose/Sinus: Normal nares present Eyes: Other: icteric sclerae Neck: Neck: supple Resp: Effort & Inspection: normal respiratory effort Cardio: Rate: regular rate GI: GI Palp: Yes Soft to palpation, No Tenderness to palpation present (GI) and No Guarding due to palpation present (GI) Auscultation: normal bowel sounds Skin: Other: jaundice Neuro: Speech: normal speech (talking but slurring some speech) Other: asterixis Extrem: Other: ++ pitting edema both legs Psych: Affect: Anxious affect present Objective Data Vital Signs Vital Signs: Vital Signs - 24 hr 09/29/22 15:38 09/29/22 20:20 09/29/22 22:00 Temperature 97.4 F L 97.0 F L Pulse Rate 97 97 95 Respiratory Rate 16 16 20 Blood Pressure 121/64 127/60 Pulse Oximetry 99 99 100 Oxygen Delivery Room Air 09/30/22 06:00 09/30/22 08:50 Temperature 97.4 F L Pulse Rate 102 H Respiratory Rate 16 Blood Pressure 105/57 L Pulse Oximetry 100 Oxygen Delivery Room Air Intake/Output Intake/Output: Intake & Output 09/27/22 09/28/22 09/29/22 09/30/22 23:59 23:59 23:59 23:59 Intake Total 2050 1630 1560 360 Output Total 1300 2300 1100 551 Balance 750 -670 460 -191 Meds/Results Medications: Active Medications Generic Name Dose Route Start Last Admin Trade Name Freq PRN Reason Stop Dose Admin Hydrocodone Bitart/Acetaminophen 1 tab 09/28/22 12:11 09/29/22 16:53 Hydrocodone/Acetaminophen (*Crx) 5-325 Mg Tablet PO 1 tab BID PRN Administration Pain Rated 7-10 Benzonatate 100 mg 09/26/22 23:44 09/27/22 18:35 Benzonatate 100 Mg Capsule PO 100 mg TID PRN Administration Cough Calcium Carbonate 1,000 mg 09/27/22 09:00 09/30/22 08:48 Calcium Carbonate (Oscal) 500 Mg Tablet PO 1,000 mg DAILY DANYEL Administration Furosemide 40 mg 09/25/22 14:45 09/30/22 09:53 Furosemide Inj 40 Mg/4 Ml Vial IV PUSH 40 mg DAILY DANYEL Administration Hydroxyzine HCl 25 mg 09/26/22 09:39
[2022-09-30] MEDS: HYDROcodone/acetaminophen (*CRX) 5-325 MG TABLET 1 TAB PO (15:24)
[2022-09-30] MEDS: SODIUM CHLORIDE 0.9% IV 1,000 ML 100 ML IV CONT (15:30)
--- NOTE | 2022-09-30 17:19 | PC.NURSE ---
This patient, Chel Gil, was received from [[id number]] on 09/30/22 at 1643. Patient/family oriented to unit policies and routines.
[2022-09-30 19:59] LABS: Hematocrit 22.2 % (37.0-47.0); Hemoglobin 7.9 g/dL (12.0-15.0)
[2022-09-30] MEDS: PANTOPRAZOLE SODIUM IV 40 MG VIAL IV PUSH (21:39)
[2022-09-30] MEDS: MORPHINE SULFATE (*CRX) 2 MG/ML INJ 1 MG IV PUSH (22:14)
[2022-10-01] VITALS (101 sets, daily range): BP systolic 57–109; BP diastolic 35–82; PULSE 105–121; RESP 7–18; TEMP 36.3–37.1; O2SAT 95–100
[2022-10-01] MEDS: HYDROmorphone HCL INJ (*CRX) 1 MG/ML SYR IV PUSH (01:10)
[2022-10-01 04:44] LABS: Hematocrit 29.6 % (37.0-47.0); Hemoglobin 10.5 g/dL (12.0-15.0); Mean Corpuscular HGB Conc 35.5 g/dl (32-36); Mean Corpuscular Hemoglobin 32.2 pg (26-34); Mean Corpuscular Volume 90.8 fl (80-100); Mean Platelet Volume 10.7 fl (7.4-10.4); Platelet Count Result 103 k/mm3 (150-375); Red Blood Count 3.26 M/mm3 (4.2-5.4); Red Cell Distribution Width 19.4 % (11.5-14.5); White Blood Count 14.6 K/mm3 (4.5-10.0)
[2022-10-01 04:54] LABS: Prothrombin Time 30.4 Seconds (11.1-14.7)
[2022-10-01 05:00] LABS: Potassium 3.8 mmol/L (3.4-5.0)
[2022-10-01 05:04] LABS: Ammonia 144 umol/L (9-30)
[2022-10-01 05:09] LABS: Alanine Aminotransferase 160 U/L (6-35); Alkaline Phosphatase 126 U/L (38-126); Anion Gap 4 mmol/L (8-16); Aspartate Amino Transferase 212 U/L (14-36); Bilirubin,Total 20.4 mg/dL (0.2-1.3); Blood Urea Nitrogen 59 mg/dL (7-17); Calcium 6.8 mg/dL (8.4-10.2); Carbon Dioxide 20 mmol/L (22-30); Chloride 99 mmol/L (98-107); Estimated CRCL calculation 32 ml/min; Estimated Glomerular Filt Rate 29; Glucose 173 mg/dL (65-110); Magnesium 3.2 mg/dL (1.6-2.3); Sodium 123 mmol/L (137-145)
[2022-10-01] MEDS: THIAMINE 500 MG/NS 100 ML 500 MG/100 ML BAG 200 MG IVPB (05:28)
[2022-10-01] MEDS: PANTOPRAZOLE SODIUM IV 40 MG VIAL IV PUSH (08:42)
--- NOTE | 2022-10-01 09:29 | WPDCNINT ---
Assessment and Plan Assessment and plan (1) Acute liver failure: Code(s): K72.00 - Acute and subacute hepatic failure without coma Status: Acute Assessment and Plan: Acute liver failure likely related to alcohol abuse and alcohol hepatitis - discriminant factor is 109, -MELD score is 36 -patient with poor prognosis and high mortality -patient was accepted to [facility] and had a bed overnight but the son refused transfer as he wanted to make her comfort measures this morning (2) Alcoholic hepatitis: Code(s): K70.10 - Alcoholic hepatitis without ascites Status: Acute Assessment and Plan: As above (3) GIB (gastrointestinal bleeding): Code(s): K92.2 - Gastrointestinal hemorrhage, unspecified Status: Acute Assessment and Plan: GI bleed likely related to liver failure, coagulopathy -status post 3 units of packed RBCs overnight -remains anemic and hypotensive -patient also received FFP x1 (4) Anemia: Code(s): D64.9 - Anemia, unspecified Status: Acute Assessment and Plan: As above (5) Coagulopathy: Code(s): D68.9 - Coagulation defect, unspecified Status: Acute Assessment and Plan: Patient given IVPB vitamin K this morning for coagulopathy (6) Hyponatremia: Code(s): E87.1 - Hypo-osmolality and hyponatremia Status: Acute Assessment and Plan: Likely related to liver failure and volume overload, ascites (7) Hepatic encephalopathy: Code(s): K76.82 - Hepatic encephalopathy Status: Acute Assessment and Plan: Patient unable to take p.o. lactulose, Plan DVT prophylaxis: SCDs Stress ulcer prophylaxis: Protonix IV q.12 hours Nutrition: NPO Discussed with 2 sons at the bedside, they are aware of patient's condition and requesting to make her comfort measures as these were the patient's wishes. I explained to them the process of withdrawal of care and comfort measures. Care coordination will be meeting with them to help them with the further process. Code Status: DNR/DNI, comfort measures Critical Care Time Spent: [address] Malik was notified Due to a high probability of clinically significant, life threatening deterioration, the patient required my highest level of preparedness to intervene emergently and I personally spent this critical care time directly and personally managing the patient. This critical care time included obtaining a history; examining the patient; pulse oximetry; ordering and review of studies; arranging urgent treatment with development of a management plan; evaluation of patient's response to treatment; frequent reassessment; and discussions with other providers. It was exclusive of separately billable procedures and treating other patients and teaching time. Please see Assessment and Plan section and the rest of the note for further information on patient assessment and treatment This dictation may have been done utilizing a voice recognition system. Attempts have been made to correct errors. However, there may be uncorrected grammatical, spelling, and recognitions errors present. 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 According the records patient drinks 2-4 bottles of wine a day of almost 7 years. She also noted that the skin has progressively become more yellow and was more confused and that is why was brought to the ED. Patient was found to have alcoholic hepatitis/cirrhosis with ascites, hepatic encephalopathy, coagulatio
[2022-10-01] MEDS: LORazepam INJ (*CRX) 2 MG/ML VIAL IV PUSH ×2 (12:30→12:33)
[2022-10-01] MEDS: MORPHINE SULFATE INJ (*CRX) 10 MG/ML AMP 5 MG IV PUSH (12:31)
--- NOTE | 2022-10-01 15:00 | WPDGIPROGNO ---
Progress Note: A&P Assessment and Plan (1) Alcoholic hepatitis: Code(s): K70.10 - Alcoholic hepatitis without ascites Status: Acute Assessment and Plan: severe etoh hepatitis with elevated discriminant function and MELD score despite medical management and steroids son decided to make her comfortable, he understood high risk mortality (2) Hepatic encephalopathy: Code(s): K76.82 - Hepatic encephalopathy Status: Acute Assessment and Plan: on lactulose she has been even more confused and now obtunded, also noted worsening renal function ? HRS (3) Coagulopathy: Code(s): D68.9 - Coagulation defect, unspecified Status: Acute Assessment and Plan: s/p blood products from liver disease (4) GIB (gastrointestinal bleeding): Code(s): K92.2 - Gastrointestinal hemorrhage, unspecified Status: Acute Assessment and Plan: we ordered iv protonix and octreotide, also given blood treated medically, no egd since now she is on comfort measures only Subjective Date/time seen: 10/01/22 15:00 Interval history: patient received blood transfusion and was going to be moved to ICU but son decided to change her code status and made her comfortable given poor prognosis Review of Systems Review of Systems: All systems reviewed & are unremarkable except as noted in HPI and below Exam Narrative: General: Very ill-looking female HEENT:? Pupils reactive, sclerae is icteric Neck:? Supple Respiratory:? Clear to auscultation bilaterally, decreased at bases Cardiac:? Sinus tachycardia, S1-S2 normal Abdomen:? Soft, distended, hypoactive bowel sounds, bloody stools noted Extremities:? Pitting edema noted, palpable pedal pulses Neuro:? Patient does open her eyes to name but is confused and does not answer any questions or follow simple commands, withdraws to pain in all extremities Skin:? Very jaundiced skin Psych:? Unable to assess Objective Data Vital Signs Vital Signs: Vital Signs - 24 hr 09/30/22 22:00 09/30/22 22:00 09/30/22 22:26 Temperature 98.7 F 98.8 F Pulse Rate 118 H 118 H 113 H Respiratory Rate 20 12 Blood Pressure 101/56 L 92/50 L Pulse Oximetry 100 100 Oxygen Delivery 09/30/22 22:45 10/01/22 00:00 09/30/22 23:45 Temperature 98.8 F 98.5 F Pulse Rate 110 H 107 H Respiratory Rate 12 12 Blood Pressure 86/51 L 93/54 L Pulse Oximetry 100 100 100 Oxygen Delivery Room Air 10/01/22 00:00 10/01/22 00:00 10/01/22 00:45 Temperature 98.5 F 98.5 F Pulse Rate 106 H 108 H 108 H Respiratory Rate 12 12 Blood Pressure 87/67 L 109/56 L Pulse Oximetry 100 96 Oxygen Delivery 10/01/22 01:30 10/01/22 01:45 10/01/22 02:00 Temperature 98.5 F 98.6 F 98.6 F Pulse Rate 107 H 108 H 106 H Respiratory Rate 12 14 13 Blood Pressure 94/59 L 94/59 L 98/64 L Pulse Oximetry 99 98 98 Oxygen Delivery 10/01/22 02:00 10/01/22 02:45 10/01/22 04:00 Temperature 97.7 F Pulse Rate 106 H 105 H Respiratory Rate 14 Blood Pressure 89/59 L Pulse Oximetry 100 100 Oxygen Delivery Room Air 10/01/22 04:00 10/01/22 04:00 10/01/22 06:00 Temperature 97.5 F L Pulse Rate 107 H 108 H 108 H Respiratory Rate 12 Blood Pressure 109/82 Pulse Oximetry 98 Oxygen Delivery 10/01/22 06:00 10/01/22 02:15 10/01/22 02:16 Temperature 98.0 F 98.0 F Pulse Rate 108 H 106 H 107 H Respiratory Rate 12 7 L 7 L Blood Pressure 92/62 L 104/69 Pulse Oximetry 98 97 98 Oxygen Delivery 10/01/22 02:30 10/01/22 02:31 10/01/22 02:45 Temperature 97.8 F 97.9 F 97.7 F Pulse Rate 108 H 109 H 105 H Respiratory Rate 8 L 8 L 7 L Blood Pressure 105/70 Pulse Oximetry 97 97 99 Oxygen Delivery 10/01/22 02:46 10/01/22 03:00 10/01/22 03:01 Temperature 97.7 F 97.7 F 97.7 F Pulse Rate 105 H 106 H 106 H Respiratory Rate 7 L 7 L 7 L Blood Pressure 89/59 L 109/66 Pulse Oximetry 99 95 98 Oxygen Delivery 10/01/22 03:15 10/01/22 03:16 10/01
[2022-10-01] MEDS: MORPHINE SULFATE (*CRX) 2 MG/ML INJ IV PUSH (15:26)
--- NOTE | 2022-10-01 15:48 | PC.NURSE ---
This patient, Chel Gil, was received from ICU-3 on 10/01/22 at 1538. Patient/family oriented to unit policies and routines
[2022-10-01 19:13] LABS: Osmolality, Urine 328 mOsm/kg (50-1200)
--- NOTE | 2022-10-02 03:22 | PC.NURSE ---
0220 patient found without bp, pulse, respirations, or corneal reflex.
--- NOTE | 2022-10-02 05:17 | PC.NURSE ---
MTS returned call and states patient is a candidate for donation and they will reach out to family. Informed that patient is currently with the home. States they will notify home.
--- NOTE | 2022-10-02 20:00 | PC.NURSE ---
0400 10/02/22 talked with [facility] and they state they will be to morgue within the hour to pick body up. Left patient out of cooler based on this information.
[2022-10-03 16:44] LABS: Kappa\\Lambda Light Chains 1.16 (0.26-1.65); Lambda Light Chain 20.9 mg/L (5.7-26.3)
[2022-10-04 13:51] LABS: Albumin 1.8 g/dL (3.8-4.8); Alpha 1 Globulin 0.3 g/dL (0.2-0.3); Alpha 2 Globulin 0.6 g/dL (0.5-0.9); Beta 1 Globulin 0.1 g/dL (0.4-0.6); Gamma Globulin 0.8 g/dL (0.8-1.7); Protein, Total 3.8 g/dL (6.1-8.1)
[2022-10-04 16:31] LABS: Chloride Rand Ur <20 mmol/L (32-290); Creatinine Random Urine 67 mg/dL (20-275)
[2022-10-06 13:56] LABS: Creatinine, Random Urine 68 mg/dL (20-275); Total Protein/Creatinine Ratio 353 mg/g creat (24-184)
--- NOTE | 2022-12-07 07:31 | P.DN_ITS ---
Discharge Summary Date and Time Date of : 10/02/22 Time of : 02:20 Provider Pronounced By: Danna Shi RN Probable Cause of Probable Cause of : etoh hepatitis acute Summary Hospital Course: Admitted to hospital with acute etoh hepatitis, patient progressively got worse and had worsening metabolic hepatic and renal picture and she subsequently from complications of etoh hepatitis. Additional Data Confirmation of as documented by pronouncing clinician: Pupillary Reflex, Palpable Pulses, Response to Stimuli, Heart Tones and Breath Sounds Name of Provider Notified: Jamar Gaviria MD Time Provider Notified: 02:34 Provider Requests Autopsy: No Family Requests Autopsy: No Email Production Consultant Notified: Yes Date [facility] Notified of : 10/02/22 Time [facility] Notified of : 02:38
== END 2022-10-02 02:20 | disposition expired | DRG 442 ==
LOC: ANHED 16:22 → ANHIMU 20:26 → ANH3MEDSUR 09-26 21:21 → ANHICU 09-30 16:27 → ANH2MED 10-01 15:31
PROVIDERS: Chiropractor; Internal Medicine; Internal Medicine Nephrology; Admitting Provider Family Medicine; Emergency Provider Emergency Medicine; PCP Emergency Medicine; Visit Provider Family Medicine
DX: K72.00 Acute and subacute hepatic failure without coma (principal); D68.9 Coagulation defect, unspecified; E87.1 Hypo-osmolality and hyponatremia; K92.1 Melena; E87.20 Acidosis, unspecified; N17.9 Acute kidney failure, unspecified; K70.10 Alcoholic hepatitis without ascites; K70.31 Alcoholic cirrhosis of liver with ascites; K76.82 Hepatic encephalopathy; D53.1 Other megaloblastic anemias, not elsewhere classified; E66.9 Obesity, unspecified; E03.9 Hypothyroidism, unspecified; E78.5 Hyperlipidemia, unspecified; F10.20 Alcohol dependence, uncomplicated; I95.9 Hypotension, unspecified; I10 Essential (primary) hypertension; K59.01 Slow transit constipation; K91.1 Postgastric surgery syndromes; R27.0 Ataxia, unspecified; R73.03 Prediabetes; Z20.822 Contact with and (suspected) exposure to COVID-19; Z98.84 Bariatric surgery status; Z68.35 Body mass index [BMI] 35.0-35.9, adult; Z90.49 Acquired absence of other specified parts of digestive tract; Z90.710 Acquired absence of both cervix and uterus; Z66 Do not resuscitate
CPT/HCPCS: 36415; 36430; 36569; 70450; 71045; 74177; 80053; 80074; 80307; 81001; 81050; 82140; 82150; 82436; 82533; 82570; 82607; 82746; 83605; 83615; 83690; 83735; 83883; 83930; 83935; 84155; 84156; 84165; 84166; 84295; 84300; 84443; 84484; 84540; 85014; 85018; 85025; 85027; 85610; 85730; 85999; 86850; 86900; 86901; 86923; 87636; 93005; 96361; 97161; 99285; A9270; C1751; C9113; J1170; J1940; J2060; J2270; J2354; J3411; J3480; J7030; J7040; J7120; J7512; P9016; P9017; Q9967